=== PATIENT | female | born 1970 | race Caucasian/White ===

== ENCOUNTER 2018-12-09 16:21 | Inpatient (IN) | payer OTHER ==
[2018-12-09] MEDS ORDERED: Sodium Chloride 0.9% 1000 ML 1,000 ML IV STA (16:50)
[2018-12-09] MEDS ORDERED: TYLENOL 325 MG PO PRN (16:52)
[2018-12-09] MEDS ORDERED: Phenergan 25 MG INJ IV PRN (16:56)
[2018-12-09] MEDS: Levofloxacin 500MG/100ML D5W 500 MG/100 ML BAG IV SCH (17:08)
[2018-12-09 17:09] LABS: BASOPHIL % 0.2 % (0.0-0.4); Basophil (Absolute #) 0.02 (0-0.4); Eosinophil % 1.5 % (0.00-5.0); Eosinophil (Absolute #) 0.15 (0-0.5); Granulocyte Absolute (ANC) 5.11 (1.4-6.9); Granulocytes % 51.1 % (36.0-66.0); Hematocrit 45.1 % (35-47); Hemoglobin 14.7 gm/dl (12.0-16.0); Lymphocyte (Absolute #) 3.83 (1.0-4.6); Lymphocytes % 38.3 % (24.0-44.0); Mean Cell Volume 100.2 fl (78-100); Mean Corpuscular Hemoglobin 32.7 pg (26-32); Mean Corpuscular Hgb Concent. 32.6 g/dl (32-36); Mean Platelet Volume 10.4 fl (6-9.5); Monocyte (Absolute #) 0.89 (0.0-1.3); Monocytes % 8.9 % (0.0-12.0); Platelet Count 292 K/mm3 (150-450); Red Cell Distribution Width 14.1 % (11.5-14.0)
[2018-12-09 17:10] LABS: ANION GAP 13.5 MEQ/L (5-15); BLOOD UREA NITROGEN 8 mg/dL (7-17); CHLORIDE 107 mmol/L (98-107); Calcium 9.1 mg/dL (8.4-10.2); Carbon Dioxide 24 mmol/L (22-30); Creatinine 1 0.71 mg/dL (0.52-1.04); Glucose 94 mg/dL (74-106); Potassium 3.4 mmol/L (3.5-5.1); SODIUM 141 mmol/L (137-145)
[2018-12-09] MEDS: Lactated Ringers 1,000 ML IV SCH (17:14)
[2018-12-09] MEDS ORDERED: Robitussin AC Syrup Unit Dose Cup ONE (17:24)
[2018-12-09] MEDS: Robitussin AC Syrup Unit Dose Cup PO PRN ×2 (17:26→21:19)
[2018-12-09] MEDS: DUONEB 0.5-3 MG/3 ml Neb IH SCH (17:29)
[2018-12-09] MEDS ORDERED: PROVENTIL 2.5 MG/3 ML NEB IH PRN (17:30)
[2018-12-09] MEDS ORDERED: solu-MEDROL 125 MG IV SCH (18:00)
[2018-12-09] MEDS ORDERED: Mucinex 600MG ER Tabs PO ONE (20:06)
[2018-12-09] MEDS: Inderal 20 MG PO SCH (21:17)
[2018-12-09] MEDS: Mucinex 600MG ER Tabs PO SCH (21:17)
[2018-12-09] MEDS: Cymbalta 30 MG Capsule PO SCH (21:17)
[2018-12-09] MEDS: Klor Con 10 MEQ PO SCH (21:18)
[2018-12-09] MEDS: Nicoderm CQ 21 MG TOP SCH (21:18)
--- NOTE | 2018-12-09 21:53 | XRAY ---
Indication: Pneumonia. Comparison: One day earlier. PA/lateral chest demonstrates stable right middle lobe infiltrate/atelectasis. Remaining heart and lungs unremarkable. No new cardiopulmonary abnormalities. Comment: Preliminary interpretation was made by [facility] who does not report right lung finding.
[2018-12-10] MEDS: DUONEB 0.5-3 MG/3 ml Neb IH SCH ×4 (00:01→19:31)
[2018-12-10] MEDS: solu-MEDROL 125 MG IV SCH ×5 (00:56→23:33)
[2018-12-10] MEDS: Lactated Ringers 1,000 ML IV SCH ×3 (01:22→19:18)
[2018-12-10] MEDS: Robitussin AC Syrup Unit Dose Cup PO PRN ×2 (05:46→21:07)
[2018-12-10 05:48] LABS: Hematocrit 43.1 % (35-47); Mean Cell Volume 100.9 fl (78-100); Mean Corpuscular Hemoglobin 32.8 pg (26-32); Mean Corpuscular Hgb Concent. 32.5 g/dl (32-36); Mean Platelet Volume 10.3 fl (6-9.5); Platelet Count 255 K/mm3 (150-450); Red Blood Count 4.27 M/mm3 (4.1-5.4); Red Cell Distribution Width 13.9 % (11.5-14.0); White Blood Count 8.9 K/mm3 (4.0-10.5)
[2018-12-10 06:13] LABS: ANION GAP 10.7 MEQ/L (5-15); BLOOD UREA NITROGEN 9 mg/dL (7-17); CHLORIDE 110 mmol/L (98-107); Carbon Dioxide 23 mmol/L (22-30); Creatinine 1 0.51 mg/dL (0.52-1.04); Glucose 171 mg/dL (74-106); Potassium 4.3 mmol/L (3.5-5.1); SODIUM 139 mmol/L (137-145)
[2018-12-10 06:30] LABS: Appearance CLEAR (CLEAR); Bilirubin NEGATIVE (NEGATIVE); Blood NEGATIVE Ery/ul (0-5); Glucose 150 mg/dL (NEGATIVE); Ketones TRACE (NEGATIVE); Leukocyte Esterase NEGATIVE (NEGATIVE); Mucus SLIGHT /HPF (NEGATIVE); Nitrite NEGATIVE (NEGATIVE); Protein,Urine Dip NEGATIVE (Negative); RBC 0-2 /HPF (0-2); Specific Gravity 1.026 (1.005-1.025); Urobilinogen NEGATIVE mg/dL (0-1)
[2018-12-10] MEDS: Klor Con 10 MEQ PO SCH (10:16)
[2018-12-10] MEDS: Mucinex 600MG ER Tabs PO SCH ×2 (10:16→21:07)
[2018-12-10] MEDS: Inderal 20 MG PO SCH ×2 (10:16→21:06)
[2018-12-10] MEDS: Depakote EXTENDED RELEASE 250 MG PO SCH ×2 (10:16→20:58)
[2018-12-10] MEDS: Cymbalta 30 MG Capsule PO SCH ×2 (10:16→20:55)
--- NOTE | 2018-12-10 10:26 | PCM.HP ---
History of Present Illness - Chief Complaint Chief Complaint: pneumonia Date: 12/09/18 (Late entry for 12/09/18 1700) History of Present Illness: is a 48 year old female pt of mine from [facility] with PMHx migraine, lupus, insulin resistance, and depression who has had cough for almost a week. She started taking zithromax and had a kenalog 40mg IM injection 5d ago when she presented with cough and wheezing. She did not improve; had to start staying home from work 3d ago due to increased cough and fever; CXR showed RML infiltrate. She was given 1 dose IM rocephin and po cefdinir to start the next day. She again had fever and worsening cough and SOB so is being admitted directly. - Review of Systems Constitutional: Fever, Fatigue Respiratory: Cough, Short Of Breath Cardiac: Chest Pain (burning, with coughing) Genitourinary Symptoms: Incontinence (with coughing) All Other Systems: Reviewed and Negative Medications & Allergies Home Medications: Home Medication List Albuterol 2.5 mg/3 ml Neb [Proventil 2.5 mg/3 ml Neb] 2.5 mg IH Q4H [History Confirmed 12/09/18] Azithromycin 250 mg [Zithromax 250 MG TABLET] 250 mg PO DAILY 12/09/18 [ History Confirmed 12/09/18] Cefdinir 300 mg PO BID 12/09/18 [History Confirmed 12/09/18] Divalproex Sodium [Divalproex Sodium ER] 500 mg PO BID 12/09/18 [History Confirmed 12/09/18] Duloxetine HCl 60 mg PO BID 12/09/18 [History Confirmed 12/09/18] Hydrocodone/Chlorphen Polis [Hydrocodone-Chlorpheniram Susp] 473 ml PO Q12H 10/25 [History Confirmed 12/09/18] Metformin HCl Xr 500 mg [Glucophage XR 500 MG] 500 mg PO BID 12/09/18 [ History Confirmed 12/09/18] Propranolol HCl 40 mg PO BID 12/09/18 [History Confirmed 12/09/18] Allergies/Adverse Reactions: Allergies Allergy/AdvReac Type Severity Reaction Status Date / Time No Known Drug Allergies Allergy Unverified 12/09/18 17:19 - Past Medical History Neurological History: No Pertinent History ENT History: No Pertinent History Respiratory History: Pneumonia Endocrine Medical History: No Pertinent History, Other Musculoskelatal History: No Pertinent History GI Medical History: No Pertinent History History: No Pertinent History Pyscho-Social History: No Pertinent History Reproductive Disorders: No Pertinent History Comment: Lupus, - Female History Are you now?: No - Past Surgical History Past Surgical History: Yes (ablasion, c section, gall blad) Neuro Surgical History: No Pertinent History Cardiac History: No Pertinent History Respiratory Surgery: No Pertinent History Genitourinary Surgical Hx: No Pertinent History Musculskeletal Surgical Hx: No Pertinent History Female Surgical History: Other Other Surgical History: ablasion, c section, cholecystectomy, - Social History Smoking Status: Current every day smoker How long have you smoked: 30 yrs Exposure to second hand smoke: Yes Alcohol: Occasionally Drug Use: none - Physical Exam Vital Signs: Vital Signs - 24 hr Temp Pulse Resp BP Pulse Ox 12/10/18 08:00 98.3 F 89 18 125/69 93 L 12/10/18 06:06 72 18 96 12/10/18 04:00 97.7 F 72 18 118/65 93 L 12/10/18 03:18 20 12/10/18 00:02 67 18 93 L 12/10/18 00:00 18 12/09/18 23:44 97.7 F 83 18 115/68 94 L 12/09/18 20:31 98.5 F 88 19 125/68 92 L 12/09/18 20:00 20 12/09/18 17:31 89 20 93 L 12/09/18 17:03 98.3 F 100 H 18 134/76 96 12/09/18 16:53 98.3 F 100 H 20 134/76 96 General Appearance: mild distress (paroxysmal coughing throughout the interview) , alert Neurologic Exam: oriented x 3, cooperative Eye Exam: eyes nml inspection Ears, Nose, Throat Exam: moist mucous membranes Neck Exam: normal inspection Respiratory Exam: normal breath sounds, rhonchi (bilat lower lobes, L>R), wheezing (scattered throughout), No crackles/rales Cardiovascular Exam: regular rate/rhythm, normal heart sounds, No murmur Back Exam: normal inspection, No rash Extremity Exam: normal inspection, No pedal edema, No swelling Skin Exam: normal color, warm, dry, No rash Results - Labs Lab/Micro Results: Lab Results-Last 24 Hours 12/09/18 12/09/18 12/10/18 Range/Units 16:55 16:55 05:43 WBC 10.0 8.9 (4.0-10.5) K/mm3 RBC 4.50 4.27 (4.1-5.4) M/mm3 Hgb 14.7 14.0 (12.0-16.0) gm/dl Hct 45.1 43.1 (35-47) % MCV 100.2 H 100.9 H (78-100) fl MCH 32.7 H 32.8 H (26-32) pg MCHC 32.6 32.5 (32-36) g/dl RDW 14.1 H 13.9 (11.5-14.0) % Plt Count 292 255 (150-450) K/mm3 MPV 10.4 H 10.3 H (6-9.5) fl Gran % 51.1 (36.0-66.0) % Eos # (Auto) 0.15 (0-0.5) Absolute Lymphs (auto) 3.83 (1.0-4.6) Absolute Monos (auto) 0.89 (0.0-1.3) Lymphocytes % 38.3 (24.0-44.0) % Monocytes % 8.9 (0.0-12.0) % Eosinophils % 1.5 (0.00-5.0) % Basophils % 0.2 (0.0-0.4) % Absolute Granulocytes 5.11 (1.4-6.9) Basophils # 0.02 (0-0.4) Sodium 141 (137-145) mmol/L Potassium 3.4 L (3.5-5.1) mmol/L Chloride 107 (98-107) mmol/L Carbon Dioxide 24 (22-30) mmol/L Anion Gap 13.5 (5-15) MEQ/L BUN 8 (7-17) mg/dL Creatinine 0.71 (0.52-1.04) mg/dL Estimated GFR > 60.0 ML/MIN Glucose 94 (74-106) mg/dL Calcium 9.1 (8.4-10.2) mg/dL Urine Color (YELLOW) Urine Appearance (CLEAR) Urine pH (5-6) Ur Specific [place] (1.005-1.025) Urine Protein (Negative) Urine Ketones (NEGATIVE) Urine Blood (0-5) Luis Alber[place]/ul Urine Nitrite (NEGATIVE) Urine Bilirubin (NEGATIVE) Urine Urobilinogen (0-1) mg/dL Ur Leukocyte Esterase (NEGATIVE) Urine WBC (Auto) (0-5) /HPF Urine RBC (Auto) (0-2) /HPF U Epithel Cells (Auto) (FEW) /HPF Urine Bacteria (Auto) (NEGATIVE) /HPF Urine Mucus (Auto) (NEGATIVE) /HPF Urine Culture Reflexed (NO) Urine Glucose (NEGATIVE) mg/dL 12/10/18 12/10/18 Range/Units 05:43 05:55 WBC (4.0-10.5) K/mm3 RBC (4.1-5.4) M/mm3 Hgb (12.0-16.0) gm/dl Hct (35-47) % MCV (78-100) fl MCH (26-32) pg MCHC (32-36) g/dl RDW (11.5-14.0) % Plt Count (150-450) K/mm3 MPV (6-9.5) fl Gran % (36.0-66.0) % Eos # (Auto) (0-0.5) Absolute Lymphs (auto) (1.0-4.6) Absolute Monos (auto) (0.0-1.3) Lymphocytes % (24.0-44.0) % Monocytes % (0.0-12.0) % Eosinophils % (0.00-5.0) % Basophils % (0.0-0.4) % Absolute Granulocytes (1.4-6.9) Basophils # (0-0.4) Sodium 139 (137-145) mmol/L Potassium 4.3 D (3.5-5.1) mmol/L Chloride 110 H (98-107) mmol/L Carbon Dioxide 23 (22-30) mmol/L Anion Gap 10.7 (5-15) MEQ/L BUN 9 (7-17) mg/dL Creatinine 0.51 L (0.52-1.04) mg/dL Estimated GFR > 60.0 ML/MIN Glucose 171 H (74-106) mg/dL Calcium 9.0 (8.4-10.2) mg/dL Urine Color YELLOW (YELLOW) Urine Appearance CLEAR (CLEAR) Urine pH 5.0 (5-6) Ur Specific [place] 1.026 (1.005-1.025) Urine Protein NEGATIVE (Negative) Urine Ketones TRACE (NEGATIVE) Urine Blood NEGATIVE (0-5) Luis Alberto/ul Urine Nitrite NEGATIVE (NEGATIVE) Urine Bilirubin NEGATIVE (NEGATIVE) Urine Urobilinogen NEGATIVE (0-1) mg/dL Ur Leukocyte Esterase NEGATIVE (NEGATIVE) Urine WBC (Auto) NONE (0-5) /HPF Urine RBC (Auto) 0-2 (0-2) /HPF U Epithel Cells (Auto) NONE (FEW) /HPF Urine Bacteria (Auto) NONE (NEGATIVE) /HPF Urine Mucus (Auto) SLIGHT (NEGATIVE) /HPF Urine Culture Reflexed NO (NO) Urine Glucose 150 (NEGATIVE) mg/dL - Radiology Impressions Radiology Exams & Impressions: Radiology Procedures Category Date Time Status CHEST 2 VIEWS (PA AND LAT) Routine Exams 12/09/18 17:00 Completed - Other Procedures and Tests Respiratory Therapy 12/09/18 17:22 Peak Expiratory Flow Rate ONCE Respiratory Therapy Assessment DAILY Assessment/Plan (1) Pneumonia Current Visit: Yes Status: Acute Qualifiers: Pneumonia type: due to unspecified organism Laterality: bilateral Lung location: unspecified part of lung Qualified Code(s): J18.9 - Pneumonia, unspecified organism Assessment & Plan: WIll admit on IV levaquin. One dose 125mg solumedrol to start, then 40mg IV q6h. Duonebs q6h. CXR and labs. Code(s): J18.9 - PNEUMONIA, UNSPECIFIED ORGANISM (2) Migraine Current Visit: Yes Status: Chronic Qualifiers: Migraine type: with aura Status migrainosus presence: without status migrainosus Intractability: not intractable Qualified Code(s): G43.109 - Migraine with aura, not intractable, without status migrainosus Assessment & Plan: stable on current meds. continue depakote and propranolol. Code(s): G43.909 - MIGRAINE, UNSP, NOT INTRACTABLE, WITHOUT STATUS MIGRAINOSUS (3) Insulin resistance Current Visit: Yes Status: Chronic Assessment & Plan: on metformin. Code(s): E88.81 - METABOLIC SYNDROME
--- NOTE | 2018-12-10 10:31 | PCM.NOTE ---
Date and Time: 12/10/18 1029 Subjective Assessment: Pt is feeling much better this morning! Cough is much improved. [place] po. Urinating fine - no incontinence with coughing over night. - Review of Systems Constitutional: No Fever Respiratory: Cough (decreased) Objective Exam General Appearance: no apparent distress, alert Neurologic Exam: oriented x 3, cooperative Skin Exam: normal color, warm, dry, No rash Respiratory Exam: normal breath sounds, rhonchi (faint in R base), No crackles/ rales, No wheezing Cardiovascular Exam: regular rate/rhythm, normal heart sounds, No murmur Extremity Exam: normal inspection, No pedal edema, No swelling Back Exam: normal inspection, No rash OBJECTIVE DATA Vital Signs: Vital Signs - 24 hr Temp Pulse Resp BP Pulse Ox 12/10/18 08:00 98.3 F 89 18 125/69 93 L 12/10/18 06:06 72 18 96 12/10/18 04:00 97.7 F 72 18 118/65 93 L 12/10/18 03:18 20 12/10/18 00:02 67 18 93 L 12/10/18 00:00 18 12/09/18 23:44 97.7 F 83 18 115/68 94 L 12/09/18 20:31 98.5 F 88 19 125/68 92 L 12/09/18 20:00 20 12/09/18 17:31 89 20 93 L 12/09/18 17:03 98.3 F 100 H 18 134/76 96 12/09/18 16:53 98.3 F 100 H 20 134/76 96 Pain Assessment - Last Documented Pain Intensity 2 Pain Scale Used 0-10 Pain Scale Intake and Output: Intake & Output 12/07/18 12/08/18 12/09/18 12/10/18 11:59 11:59 11:59 11:59 Intake Total 4978 Output Total 550 Balance 4428 Weight 88.7 kg Lab Results: Lab Results-Last 24 Hours 12/09/18 12/09/18 12/10/18 Range/Units 16:55 16:55 05:43 WBC 10.0 8.9 (4.0-10.5) K/mm3 RBC 4.50 4.27 (4.1-5.4) M/mm3 Hgb 14.7 14.0 (12.0-16.0) gm/dl Hct 45.1 43.1 (35-47) % MCV 100.2 H 100.9 H (78-100) fl MCH 32.7 H 32.8 H (26-32) pg MCHC 32.6 32.5 (32-36) g/dl RDW 14.1 H 13.9 (11.5-14.0) % Plt Count 292 255 (150-450) K/mm3 MPV 10.4 H 10.3 H (6-9.5) fl Gran % 51.1 (36.0-66.0) % Eos # (Auto) 0.15 (0-0.5) Absolute Lymphs (auto) 3.83 (1.0-4.6) Absolute Monos (auto) 0.89 (0.0-1.3) Lymphocytes % 38.3 (24.0-44.0) % Monocytes % 8.9 (0.0-12.0) % Eosinophils % 1.5 (0.00-5.0) % Basophils % 0.2 (0.0-0.4) % Absolute Granulocytes 5.11 (1.4-6.9) Basophils # 0.02 (0-0.4) Sodium 141 (137-145) mmol/L Potassium 3.4 L (3.5-5.1) mmol/L Chloride 107 (98-107) mmol/L Carbon Dioxide 24 (22-30) mmol/L Anion Gap 13.5 (5-15) MEQ/L BUN 8 (7-17) mg/dL Creatinine 0.71 (0.52-1.04) mg/dL Estimated GFR > 60.0 ML/MIN Glucose 94 (74-106) mg/dL Calcium 9.1 (8.4-10.2) mg/dL Urine Color (YELLOW) Urine Appearance (CLEAR) Urine pH (5-6) Ur Specific [place] (1.005-1.025) Urine Protein (Negative) Urine Ketones (NEGATIVE) Urine Blood (0-5) Luis Alberto/ul Urine Nitrite (NEGATIVE) Urine Bilirubin (NEGATIVE) Urine Urobilinogen (0-1) mg/dL Ur Leukocyte Esterase (NEGATIVE) Urine WBC (Auto) (0-5) /HPF Urine RBC (Auto) (0-2) /HPF U Epithel Cells (Auto) (FEW) /HPF Urine Bacteria (Auto) (NEGATIVE) /HPF Urine Mucus (Auto) (NEGATIVE) /HPF Urine Culture Reflexed (NO) Urine Glucose (NEGATIVE) mg/dL 12/10/18 12/10/18 Range/Units 05:43 05:55 WBC (4.0-10.5) K/mm3 RBC (4.1-5.4) M/mm3 Hgb (12.0-16.0) gm/dl Hct (35-47) % MCV (78-100) fl MCH (26-32) pg MCHC (32-36) g/dl RDW (11.5-14.0) % Plt Count (150-450) K/mm3 MPV (6-9.5) fl Gran % (36.0-66.0) % Eos # (Auto) (0-0.5) Absolute Lymphs (auto) (1.0-4.6) Absolute Monos (auto) (0.0-1.3) Lymphocytes % (24.0-44.0) % Monocytes % (0.0-12.0) % Eosinophils % (0.00-5.0) % Basophils % (0.0-0.4) % Absolute Granulocytes (1.4-6.9) Basophils # (0-0.4) Sodium 139 (137-145) mmol/L Potassium 4.3 D (3.5-5.1) mmol/L Chloride 110 H (98-107) mmol/L Carbon Dioxide 23 (22-30) mmol/L Anion Gap 10.7 (5-15) MEQ/L BUN 9 (7-17) mg/dL Creatinine 0.51 L (0.52-1.04) mg/dL Estimated GFR > 60.0 ML/MIN Glucose 171 H (74-106) mg/dL Calcium 9.0 (8.4-10.2) mg/dL Urine Color YELLOW (YELLOW) Urine Appearance CLEAR (CLEAR) Urine pH 5.0 (5-6) Ur Specific [place] 1.026 (1.005-1.025) Urine Protein NEGATIVE (Negative) Urine Ketones TRACE (NEGATIVE) Urine Blood NEGATIVE (0-5) Luis Alberto/ul Urine Nitrite NEGATIVE (NEGATIVE) Urine Bilirubin NEGATIVE (NEGATIVE) Urine Urobilinogen NEGATIVE (0-1) mg/dL Ur Leukocyte Esterase NEGATIVE (NEGATIVE) Urine WBC (Auto) NONE (0-5) /HPF Urine RBC (Auto) 0-2 (0-2) /HPF U Epithel Cells (Auto) NONE (FEW) /HPF Urine Bacteria (Auto) NONE (NEGATIVE) /HPF Urine Mucus (Auto) SLIGHT (NEGATIVE) /HPF Urine Culture Reflexed NO (NO) Urine Glucose 150 (NEGATIVE) mg/dL Radiology Exams: Radiology Procedures Category Date Time Status CHEST 2 VIEWS (PA AND LAT) Routine Exams 12/09/18 17:00 Completed Assessment/Plan (1) Pneumonia Current Visit: Yes Status: Acute Qualifiers: Pneumonia type: due to unspecified organism Laterality: bilateral Lung location: unspecified part of lung Qualified Code(s): J18.9 - Pneumonia, unspecified organism Assessment & Plan: Much improved on IV levaquin and solumedrol. Advised she should stay and get her steroids today, duonebs, and IV fluids. Get another dose of levaquin tomorrow then discharge to home. Code(s): J18.9 - PNEUMONIA, UNSPECIFIED ORGANISM (2) Migraine Current Visit: Yes Status: Chronic Qualifiers: Migraine type: with aura Status migrainosus presence: without status migrainosus Intractability: not intractable Qualified Code(s): G43.109 - Migraine with aura, not intractable, without status migrainosus Code(s): G43.909 - MIGRAINE, UNSP, NOT INTRACTABLE, WITHOUT STATUS MIGRAINOSUS (3) Insulin resistance Current Visit: Yes Status: Chronic Assessment & Plan: restart metformin Code(s): E88.81 - METABOLIC SYNDROME
[2018-12-10] MEDS: Glucophage XR 500 MG PO SCH ×2 (10:54→21:07)
[2018-12-10] MEDS: Levofloxacin 500MG/100ML D5W 500 MG/100 ML BAG IV SCH (14:44)
[2018-12-10] MEDS: Nicoderm CQ 21 MG TOP SCH (20:54)
[2018-12-11] MEDS: DUONEB 0.5-3 MG/3 ml Neb IH SCH ×2 (00:55→07:29)
[2018-12-11] MEDS: Lactated Ringers 1,000 ML IV SCH (04:02)
[2018-12-11 06:19] LABS: BLOOD UREA NITROGEN 7 mg/dL (7-17); CHLORIDE 106 mmol/L (98-107); Calcium 9.3 mg/dL (8.4-10.2); Carbon Dioxide 24 mmol/L (22-30); Creatinine 1 0.44 mg/dL (0.52-1.04); Glucose 138 mg/dL (74-106); SODIUM 140 mmol/L (137-145)
[2018-12-11 06:21] LABS: Potassium 3.9 mmol/L (3.5-5.1)
[2018-12-11 06:25] LABS: ANION GAP 13.9 MEQ/L (5-15)
[2018-12-11] MEDS: solu-MEDROL 125 MG IV SCH (06:49)
--- NOTE | 2018-12-11 10:19 | PCM.DS ---
Discharge Summary Date of Admission: 12/09/18 16:25 Admitting Physician: BRUCE BONILLA Primary Care Provider: BRUCE BONILLA Allergies Allergies No Known Drug Allergies Allergy (Unverified 12/09/18 17:19) Hospital Summary - Vitals & Intake/Output Vital Signs: Vital Signs Temperature 98.0 F 12/11/18 08:00 Pulse Rate 79 12/11/18 08:00 Respiratory Rate 18 12/11/18 08:00 Blood Pressure 143/67 12/11/18 08:00 O2 Sat by Pulse Oximetry 96 12/11/18 08:00 Intake & Output: Intake & Output 12/08/18 12/09/18 12/10/18 12/11/18 11:59 11:59 11:59 11:59 Intake Total 5228 6708 Output Total 550 Balance 4678 6708 Weight 88.7 kg - Lab Result Diagrams: 12/10/18 05:43 12/11/18 05:45 Lab Results-Last 24 Hrs: Lab Results-Last 24 Hours 12/11/18 Range/Units 05:45 Sodium 140 (137-145) mmol/L Potassium 3.9 (3.5-5.1) mmol/L Chloride 106 (98-107) mmol/L Carbon Dioxide 24 (22-30) mmol/L Anion Gap 13.9 (5-15) MEQ/L BUN 7 (7-17) mg/dL Creatinine 0.44 L (0.52-1.04) mg/dL Estimated GFR > 60.0 ML/MIN Glucose 138 H (74-106) mg/dL Calcium 9.3 (8.4-10.2) mg/dL - Radiology Exams Ordered Rad Exams-Entire Visit: Radiology Procedures Category Date Time Status CHEST 2 VIEWS (PA AND LAT) Routine Exams 12/09/18 17:00 Completed - Procedures and Test Procedures and Tests throughout Hospitalization: Therapy Orders & Screens 12/09/18 16:43 Respiratory Nebulizer Q6H Comment: DUONEB Q6H 12/09/18 17:22 Peak Expiratory Flow Rate ONCE Comment: Reason For Exam: Respiratory Therapy Assessment DAILY Comment: 12/09/18 17:34 Smoking Cessation Education ONCE Comment: Diagnosis: pneumonia Smoking Status: Current every day smoker How long have you smoked: 30 yrs Have you smoked in the past 12 months: Yes Discharge Exam General Appearance: no apparent distress, alert Neurologic Exam: oriented x 3, cooperative Skin Exam: normal color, warm, dry, No rash Respiratory Exam: normal breath sounds (good air exchange), rhonchi (scattered) , wheezing (scattered), No crackles/rales Cardiovascular Exam: regular rate/rhythm, normal heart sounds, No murmur Extremity Exam: normal inspection, No pedal edema, No swelling Back Exam: normal inspection, No rash Final Diagnosis/Problem List - Final Discharge Diagnosis/Problem (1) Pneumonia Current Visit: Yes Status: Acute Assessment & Plan: Much improved clinically. RML still present on over read of CXR at admission. On IV levaquin. After today's dose, OK to discharge to home on po prednisone, mucinex, levaquin , duonebs. Code(s): J18.9 - PNEUMONIA, UNSPECIFIED ORGANISM (2) Migraine Current Visit: Yes Status: Chronic Code(s): G43.909 - MIGRAINE, UNSP, NOT INTRACTABLE, WITHOUT STATUS MIGRAINOSUS (3) Insulin resistance Current Visit: Yes Status: Chronic Code(s): E88.81 - METABOLIC SYNDROME - Discharge Disposition: Home, Self-Care Condition: Good Prescriptions: New Prednisone 20 mg [Deltasone 20 mg] 20 mg PO DAILY #10 tablet Albuterol/Ipratropium 3ml Neb* [DUONEB 0.5-3 MG/3 ml Neb] 3 ml IH Q6H #20 ampul.neb Levofloxacin [Levaquin] 500 mg PO DAILY 7 Days #7 tablet Guaifenesin 600 mg ER [Mucinex 600MG ER Tabs] 600 mg PO BID PRN #30 tablet PRN Reason: Cough Continue Duloxetine HCl 60 mg PO BID Divalproex Sodium [Divalproex Sodium ER] 500 mg PO BID Metformin HCl Xr 500 mg [Glucophage XR 500 MG] 500 mg PO BID Propranolol HCl 40 mg PO BID Discontinued Azithromycin 250 mg [Zithromax 250 MG TABLET] 250 mg PO DAILY Albuterol 2.5 mg/3 ml Neb [Proventil 2.5 mg/3 ml Neb] 2.5 mg IH Q4H Cefdinir 300 mg PO BID Hydrocodone/Chlorphen Polis [Hydrocodone-Chlorpheniram Susp] 473 ml PO Q12H Follow up with: BRUCE BONILLA [Primary Care Provider] - 1 Week
[2018-12-11] MEDS: Levofloxacin 500MG/100ML D5W 500 MG/100 ML BAG IV SCH (10:26)
[2018-12-11] MEDS: Klor Con 10 MEQ PO SCH (10:28)
[2018-12-11] MEDS: Mucinex 600MG ER Tabs PO SCH (10:28)
[2018-12-11] MEDS: Cymbalta 30 MG Capsule PO SCH (10:28)
[2018-12-11] MEDS: Depakote EXTENDED RELEASE 250 MG PO SCH (10:28)
[2018-12-11] MEDS: Glucophage XR 500 MG PO SCH (10:28)
[2018-12-11] MEDS: Inderal 20 MG PO SCH (10:28)
[2018-12-11 12:02] VITALS: BP 137/78; PULSE 80; O2SAT 93
== END 2018-12-11 11:55 | disposition home or self-care (01) | DRG 195 ==
LOC: MED SURG 16:25
PROVIDERS: ADMIT Family Medicine; ATTEND Family Medicine
DX: J18.9 Pneumonia, unspecified organism (principal); G43.909 Migraine, unspecified, not intractable, without status migrainosus; E88.81 Metabolic syndrome and other insulin resistance; Z79.899 Other long term (current) drug therapy
CPT/HCPCS: 36415; 71046; 80048; 81001; 85025; 85027; 94150; 94640; 94760; J1956; J2930; A9270-GY

== ENCOUNTER 2020-06-02 14:18 | Emergency (ER) | payer OTHER ==
[2020-06-02] MEDS ORDERED: Zofran 4 MG/2 ML VIAL IV ONE (14:21)
[2020-06-02] MEDS ORDERED: Sodium Chloride 0.9% 1000 ML 1,000 ML IV STA (14:21)
[2020-06-02 14:36] VITALS: BP 128/96; PULSE 91; O2SAT 96
[2020-06-02] MEDS ORDERED: Zofran 4 MG/2 ML VIAL ONE (14:37)
[2020-06-02] MEDS ORDERED: Sodium Chloride 0.9% 1000 ML 1,000 ML ONE (14:37)
[2020-06-02 14:53] LABS: Absolute Neutrophil Ct (ANC) 6.13 (1.4-6.9); BASOPHIL % 0.2 % (0.0-0.4); Basophil (Absolute #) 0.02 (0-0.4); Hematocrit 47.9 % (35-47); Hemoglobin 16.3 gm/dl (12.0-16.0); Lymphocyte (Absolute #) 3.12 (1.0-4.6); Lymphocytes % 30.7 % (24.0-44.0); Mean Cell Volume 94.1 fl (78-100); Mean Platelet Volume 10.9 fl (7.5-11.0); Monocyte (Absolute #) 0.79 (0.0-1.3); Monocytes % 7.8 % (0.0-12.0); Neutrophil % 60.3 % (36.0-66.0); Platelet Count 263 K/mm3 (150-450); Red Blood Count 5.09 M/mm3 (4.1-5.4); Red Cell Distribution Width 14.5 % (11.5-14.0); White Blood Count 10.2 K/mm3 (4.0-10.5)
[2020-06-02 14:58] LABS: ALBUMIN 4.1 g/dL (3.5-5.0); ALKALINE PHOSPHATASE 80 U/L (38-126); AMYLASE 57 U/L (30-110); ANION GAP 12.2 MEQ/L (5-15); BLOOD UREA NITROGEN 11 mg/dL (7-17); CHLORIDE 107 mmol/L (98-107); Calcium 9.7 mg/dL (8.4-10.2); Carbon Dioxide 20 mmol/L (22-30); Creatinine 1 0.72 mg/dL (0.52-1.04); EST GLOMERULAR FILTRATION RATE > 60.0 ML/MIN; Glucose 108 mg/dL (74-106); LIPASE 174 U/L (23-300); Potassium 3.3 mmol/L (3.5-5.1); SGOT/AST 30 U/L (14-36); SGPT/ALT 38 U/L (0-35); SODIUM 136 mmol/L (137-145); Total Protein 8.1 g/dL (6.3-8.2)
--- NOTE | 2020-06-02 15:12 | ERPHSYRPT ---
- History of Present Illness Time Seen by Provider: 06/02/20 15:09 Historian: patient Exam Limitations: no limitations Patient Subjective Stated Complaint: Abdominal pain for 3-4 days Triage Nursing Assessment: Patient ambulated back to ED and transferred self to bed. Patient A+O X3. Patient's skin pink, warm and dry. Patient complains of lower abdominal pain constant dull pain 4/10 for 4 days. Abdomen soft and round with BS X 4. Patient reports last BM 7 days ago. Patient denies vomiting or diarrhea but complains of nausea. Physician History: This 49-year-old female without any significant past medical history started having lower quadrant abdominal pain 3 to 4 days ago. 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 She continues to have the lower abdominal pain associated with severe nausea feeling. Pain got so worse today that it almost bent her over. She denies any fevers chills headache back pain or abnormal bleeding through vagina. Patient does not have any previous history of same type of abdominal pain. Timing/Duration: day(s) (3-4 days) Quality: cramping Abdominal Pain Onset Location: RLQ, LLQ, suprapubic Pain Radiation: no radiation Severity of Pain-Max: moderate Severity of Pain-Current: moderate Modifying Factors: Improves With: nothing Associated Symptoms: nausea Previous symptoms: no prior history Allergies/Adverse Reactions: No Known Drug Allergies Allergy (Verified 06/02/20 14:26) Home Medications: Docusate Sodium 100 mg [Colace 100 MG] 1 tab PO BID 06/02/20 [History] Topiramate [Topamax] 75 mg PO BID 06/02/20 [History] Hx Influenza Vaccination/Date Given: No Hx Pneumococcal Vaccination/Date Given: No Immunizations Up to Date: Yes Travel Risk - International Travel Have you traveled outside of the country in past 3 weeks: No - Coronavirus Screening Are you exhibiting any of the following symptoms?: No Close contact with a COVID-19 positive Pt in past 14-21 Days: No - Review of Systems Constitutional: No Fever, No Chills Eyes: No Symptoms Ears, Nose, & Throat: No Symptoms Respiratory: No Cough, No Dyspnea Cardiac: No Chest Pain, No Edema, No Syncope Abdominal/Gastrointestinal: Abdominal Pain, Nausea, No Vomiting, No Diarrhea Genitourinary Symptoms: No Dysuria Musculoskeletal: No Back Pain, No Neck Pain Skin: No Rash Neurological: No Dizziness, No Focal Weakness, No Sensory Changes Psychological: No Symptoms Endocrine: No Symptoms All Other Systems: Reviewed and Negative - Past Medical History Neurological History: No Pertinent History ENT History: No Pertinent History Respiratory History: Pneumonia Endocrine Medical History: No Pertinent History, Other Musculoskeletal History: No Pertinent History GI Medical History: No Pertinent History History: No Pertinent History Psycho-Social History: No Pertinent History Female Reproductive Disorders: No Pertinent History Other Medical History: Lupus, - Past Surgical History Past Surgical History: Yes (ablasion, c section, gall blad) Neuro Surgical History: No Pertinent History Cardiac: No Pertinent History Respiratory: No Pertinent History Gastrointestinal: Cholecystectomy Genitourinary: No Pertinent History Musculoskeletal: No Pertinent History Female Surgical History: Other Other Surgical History: ablasion, c section, cholecystectomy, - Social History Smoking Status: Current every day smoker How long have you smoked: 30 yrs Exposure to second hand smoke: Yes Drug Use: none Patient Lives Alone: Yes - Female History Hx Last Menstrual Period: ablation Hx Now: No - Nursing Vital Signs Nursing Vital Signs: Initial Vital Signs Temperature 98.4 F 06/02/20 14:29 Pulse Rate 91 H 06/02/20 14:29 Respiratory Rate 18 06/02/20 14:29 Blood Pressure 128/96 06/02/20 14:29 O2 Sat by Pulse Oximetry 96 06/02/20 14:29 Pain Scale Pain Intensity 4 - Physical Exam General Appearance: no apparent distress, alert Eye Exam: PERRL/EOMI, eyes nml inspection Ears, Nose, Throat Exam: normal ENT inspection, pharynx normal, moist mucous membranes Neck Exam: normal inspection, non-tender, supple, full range of motion Respiratory Exam: normal breath sounds, lungs clear, No respiratory distress Cardiovascular Exam: regular rate/rhythm, normal heart sounds Gastrointestinal/Abdomen Exam: soft, tenderness (lower abdomen ), rebound (LLQ), No mass Back Exam: normal inspection, normal range of motion, No CVA tenderness, No vertebral tenderness Extremity Exam: normal inspection, normal range of motion, pelvis stable Neurologic Exam: alert, oriented x 3, cooperative, normal mood/affect, nml cerebellar function, sensation nml, No motor deficits Skin Exam: normal color, warm, dry SpO2: 96 - Course Nursing assessment & vital signs reviewed: Yes - CT Exams Abdomen/Pelvis CT Interpretation: Tele-radiologist Report (acute sigmoid diverticulitis) Ordered Tests: Active Orders 24 hr Category Date Time Status ABDOMEN AND PELVIS W/0 CONTRAS [CT] Stat Exams 06/02/20 14:22 Taken AMYLASE Stat Lab 06/02/20 14:40 Completed CBC W DIFF Stat Lab 06/02/20 14:40 Completed CMP Stat Lab 06/02/20 14:40 Completed LIPASE Stat Lab 06/02/20 14:40 Completed Lactic Acid Stat Lab 06/02/20 14:21 Completed UA W/RFX UR CULTURE Stat Lab 06/02/20 14:22 Ordered Medication Summary Discontinued Medications Generic Name Dose Route Start Last Admin Trade Name Freq PRN Reason Stop Dose Admin Sodium Chloride 1,000 mls @ 999 mls/hr 06/02/20 14:21 06/02/20 14:38 Sodium Chloride 0.9% 1000 Ml IV 06/02/20 15:21 999 mls/hr .Q1H1M STA Administration Sodium Chloride Confirm 06/02/20 14:37 Sodium Chloride 0.9% 1000 Ml Administered 06/02/20 14:38 Dose 1,000 mls @ ud .ROUTE .STK-MED ONE Ondansetron HCl 4 mg 06/02/20 14:21 06/02/20 14:38 Zofran 4 Mg/2 Ml Vial IV 06/02/20 14:22 4 mg STAT ONE Administration Ondansetron HCl Confirm 06/02/20 14:37 Zofran 4 Mg/2 Ml Vial Administered 06/02/20 14:38 Dose 4 mg .ROUTE .STK-MED ONE Lab/Rad Data: Laboratory Result Diagrams 06/02/20 14:40 06/02/20 14:40 Laboratory Results 06/02/20 06/02/20 06/02/20 Range/Units 14:40 14:40 14:21 WBC 10.2 (4.0-10.5) K/mm3 RBC 5.09 (4.1-5.4) M/mm3 Hgb 16.3 H (12.0-16.0) gm/dl Hct 47.9 H (35-47) % MCV 94.1 (78-100) fl MCH 32.0 (26-32) pg MCHC 34.0 (32-36) g/dl RDW 14.5 H (11.5-14.0) % Plt Count 263 (150-450) K/mm3 MPV 10.9 (7.5-11.0) fl Gran % 60.3 (36.0-66.0) % Eos # (Auto) 0.10 (0-0.5) Absolute Lymphs (auto) 3.12 (1.0-4.6) Absolute Monos (auto) 0.79 (0.0-1.3) Lymphocytes % 30.7 (24.0-44.0) % Monocytes % 7.8 (0.0-12.0) % Eosinophils % 1.0 (0.00-5.0) % Basophils % 0.2 (0.0-0.4) % Absolute Granulocytes 6.13 (1.4-6.9) Basophils # 0.02 (0-0.4) Sodium 136 L (137-145) mmol/L Potassium 3.3 L (3.5-5.1) mmol/L Chloride 107 (98-107) mmol/L Carbon Dioxide 20 L (22-30) mmol/L Anion Gap 12.2 (5-15) MEQ/L BUN 11 (7-17) mg/dL Creatinine 0.72 (0.52-1.04) mg/dL Estimated GFR > 60.0 ML/MIN Glucose 108 H (74-106) mg/dL Lactic Acid 1.3 (0.4-2.0) Calcium 9.7 (8.4-10.2) mg/dL Total Bilirubin 0.50 (0.2-1.3) mg/dL AST 30 (14-36) U/L ALT 38 H (0-35) U/L Alkaline Phosphatase 80 (38-126) U/L Serum Total Protein 8.1 (6.3-8.2) g/dL Albumin 4.1 (3.5-5.0) g/dL Amylase 57 (30-110) U/L Lipase 174 (23-300) U/L - Progress Discussed with : Bella Counseled pt/family regarding: lab results, diagnosis, need for follow-up, rad results - Departure Departure Disposition: Home Clinical Impression: Sigmoid diverticulitis Condition: Stable Critical Care Time: No Referrals: BRUCE HILLIARD [Primary Care Provider] - Instructions: Diverticulitis (DC) Additional Instructions: Discharge/Care Plan LEANDRA ASCENCIO was seen on 06/02/20 in the Emergency Room. The patient was counseled regarding Diagnosis,Lab results, Imaging studies, need for follow up and when to return to the Emergency Room. Prescriptions given: Discharge Note I have spoken with the patient and/or caregivers. I have explained the patient's condition, diagnosis and treatment plan based on the information available to me at this time. I have answered the patient's and/or caregiver's questions and addressed any concerns. The patient and/or caregivers have as good understanding of the patient's diagnosis, condition and treatment plan as can be expected at this point. The vital signs have been stable. The patient's condition is stable and appropriate for discharge from the emergency department. The patient will pursue further outpatient evaluation with the primary care physician or other designated or consulting physician as outlined in the discharge instructions. The patient and/or caregivers are agreeable to this plan of care and follow-up instructions have been explained in detail. The patient and/or caregivers have received these instruction. The patient/and or caregivers are aware that any significant change in condition or worsening of symptoms should prompt an immediate return to this or the closest emergency department or call 911. LEANDRA ASCENCIO was seen on 06/02/20 n the Emergency Room. At that time you we re treated for an emergent condition, during your visit Laboratory, Radiology and/or other procedures may have been ordered. It is very important that you follow-up with your Primary Care Physician BRUCE HILLIARD within the next 24-48 hours to review your Emergency Room visit and the final results of testing that was ordered. Some test results such as Urine Cultures, Blood Cultures, and other cultures if ordered will not be finalized for 24-48 hours. If you do not have a Primary Care Provider please call the medical records department at [phone] ext [phone] to obtain a copy of your results or you may sign into our patient portal to obtain these results by visiting us @ [email or web address] and completing the following steps: 1. Click on the Patient Portal link 2. Click the Patient Self Enrollment Link to complete the enrollment form and entering your 3. Once the enrollment form is completed you will receive an email with a temporary ID and password at the email address you provided. 4. Next choose a user name and password. Your user name must be at least 4 characters long and your password must be at least 4 characters long. 5. Choose a security question from the list and provide your answer to the question. If you already have signed into the Health Portal you may access your Health Care Information 01/03 by the following steps: 1. Login to our website @ [email or web address] 2. Enter your original user name and password. FAQS The [facility] Health Portal is an online tool that contains your Lab Results, Radiology Reports, Visit History, Discharge Instructions and Health Summary Lab and Radiology Results will not be available for 72 hours on the portal. The Portal is a secure site, passwords are encryted and URLs are re-written so they cannot be copied and pasted. You and authorized family members are the only ones who can access your Portal. Also there is a timeout feature that protects your information if you leave the Portal page open. If you have technical difficulty please use the Contact Us link on the page this will allow you to submit any questions you have regarding the Portal or you may contact the Medical Record Department at [phone] ext [phone]. Prescriptions: Ciprofloxacin [Cipro 500 MG] 500 mg PO BIDAC #20 tablet Metronidazole 500 mg [Flagyl 500 MG] 500 mg PO TID #21 tablet
[2020-06-02] MEDS ORDERED: Flagyl 500 MG PO ONE (15:30)
[2020-06-02] MEDS ORDERED: Cipro 500 MG PO STA (15:30)
[2020-06-02] MEDS ORDERED: Cipro 500 MG ONE (15:49)
[2020-06-02] MEDS ORDERED: Flagyl 500 MG ONE (15:49)
--- NOTE | 2020-06-02 19:22 | XRAY ---
Indication: Abdomen/pelvic pain 3 days. Multiple contiguous axial images obtained through the abdomen and pelvis without contrast as ordered. Comparison: April 12, 2014. Lung bases are clear. Heart is not enlarged. Noncontrasted stomach and bowel loops appear nonobstructed. Normal appendix. Mild scattered descending and sigmoid diverticulosis. Sigmoid colon demonstrates mild wall thickening with mild pericolonic stranding favoring diverticulitis. Tiny pelvic free fluid but no walled off fluid collection or free air. Again previous cholecystectomy. Stable tiny posterior right lobe hepatic cyst/hemangioma and 2.4 cm left adrenal adenoma. Remaining liver, pancreas, spleen, right adrenal gland, kidneys, ureters, bladder, and uterus appear unremarkable for noncontrast exam. Again minimal aortoiliac calcifications without AAA. Osseous structures intact. Impression: 1. Descending/sigmoid diverticulosis with new sigmoid diverticulitis and tiny reactive free fluid. 2. Stable tiny hepatic cyst/hemangioma and small left adrenal adenoma. Comment: Preliminary interpretation was made by [facility]. No critical discrepancy.
== END 2020-06-02 16:14 | disposition home or self-care (01) ==
LOC: ED 14:18
DX: K57.32 Diverticulitis of large intestine without perforation or abscess without bleeding (principal); R10.31 Right lower quadrant pain; R10.32 Left lower quadrant pain; R10.9 Unspecified abdominal pain
CPT/HCPCS: 36000; 36415; 74176; 80053; 82150; 83605; 83690; 85025; 96374; 99284; J2405; A9270-GY

== ENCOUNTER 2021-08-23 17:43 | Observation (INO) | payer OTHER ==
[2021-08-23] MEDS ORDERED: BABY ASPIRIN 81 MG CHEW PO ONE (18:13)
[2021-08-23] MEDS ORDERED: Zofran 4 MG/2 ML VIAL IV ONE (18:13)
[2021-08-23] MEDS ORDERED: MORPHINE SULFATE 4 MG INJ IV ONE (18:13)
[2021-08-23 18:23] LABS: Absolute Neutrophil Ct (ANC) 6.21 (1.4-6.9); Basophil (Absolute #) 0.02 (0-0.4); Eosinophil % 0.5 % (0.00-5.0); Eosinophil (Absolute #) 0.05 (0-0.5); Hemoglobin 14.9 gm/dl (12.0-16.0); Lymphocyte (Absolute #) 2.85 (1.0-4.6); Lymphocytes % 28.8 % (24.0-44.0); Mean Cell Volume 95.9 fl (78-100); Mean Corpuscular Hemoglobin 31.8 pg (26-32); Mean Corpuscular Hgb Concent. 33.1 g/dl (32-36); Mean Platelet Volume 9.9 fl (7.5-11.0); Monocyte (Absolute #) 0.77 (0.0-1.3); Monocytes % 7.8 % (0.0-12.0); Neutrophil % 62.7 % (36.0-66.0); Platelet Count 276 K/mm3 (150-450); Red Blood Count 4.69 M/mm3 (4.1-5.4); Red Cell Distribution Width 13.9 % (11.5-14.0); White Blood Count 9.9 K/mm3 (4.0-10.5)
[2021-08-23] MEDS ORDERED: MORPHINE SULFATE 4 MG INJ ONE (18:54)
[2021-08-23] MEDS ORDERED: Zofran 4 MG/2 ML VIAL ONE (18:54)
[2021-08-23] MEDS ORDERED: BABY ASPIRIN 81 MG CHEW ONE (18:54)
--- NOTE | 2021-08-23 19:03 | ERPHSYRPT ---
- History of Present Illness Time Seen by Provider: 08/23/21 17:46 Historian: patient Exam Limitations: no limitations Patient Subjective Stated Complaint: PT states "[facility] due to what I think is pleurasy and when they jeevan my labs, my D Dimer was elevated." Triage Nursing Assessment: Pt presented alert and oriented X 3, skin pwd Pt ambualtes with an upright steady gait, able to speak in clear full sentences. PT in no apaprent respiratory distress. Physician History: 50 years old female with history of hypertension, tobacco abuse presented in the ER with left shoulder blade area pain since yesterday, moderate intensity, dull to sharp nature, aggravated with deep breathing/coughing/position change /palpation and partial relief with being still in a certain position. Denies any anterior chest pain or difficulty breathing otherwise. Patient was seen at urgent care and has positive D-dimer and presented to the ER for further evaluation. Timing/Duration: yesterday, constant, gradual onset, worse Activities at Onset: rest Quality: sharpness Location: back Chest Pain Radiation: no radiation Severity of Pain-Max: moderate Severity of Pain-Current: moderate Modifying Factors: Worsens With: breathing, coughing, movement, palpation, change in position Associated Symptoms: denies symptoms, back pain Prior Chest Pain/Cardiac Workup: no prior chest pain, no prior cardiac workup Nitro Today/Relief: no nitro taken today Aspirin Treatment Today: no aspirin today Allergies/Adverse Reactions: No Known Drug Allergies Allergy (Verified 06/02/20 14:26) Home Medications: Topiramate [Topamax] 75 mg PO BID 06/02/20 [History] Amlodipine Bes/Olmesartan Med [Amlodipine-Olmesartan 10-20 mg] 1 each PO DAILY 08/23/21 [History] Semaglutide [Ozempic] 0.5 mg SQ 08/23/21 [History] Hx Tetanus, Diphtheria Vaccination/Date Given: No Hx Influenza Vaccination/Date Given: No Hx Pneumococcal Vaccination/Date Given: No Immunizations Up to Date: Yes Travel Risk - International Travel Have you traveled outside of the country in past 3 weeks: No - Coronavirus Screening Are you exhibiting any of the following symptoms?: No Close contact with a COVID-19 positive Pt in past 14-21 Days: No - Vaccine Status Have you recieved a Covid-19 vaccination: Yes [employer]: [employer] - Review of Systems Constitutional: No Symptoms Eyes: No Symptoms Ears, Nose, & Throat: No Symptoms Respiratory: No Symptoms Cardiac: Chest Pain Abdominal/Gastrointestinal: No Symptoms Genitourinary Symptoms: No Symptoms Musculoskeletal: Back Pain Skin: No Symptoms Neurological: No Symptoms Psychological: No Symptoms Endocrine: No Symptoms Hematologic/Lymphatic: No Symptoms Immunological/Allergic: No Symptoms - Past Medical History Pertinent Past Medical History: Yes Neurological History: No Pertinent History ENT History: No Pertinent History Respiratory History: Pneumonia Endocrine Medical History: No Pertinent History, Other Musculoskeletal History: No Pertinent History GI Medical History: No Pertinent History History: No Pertinent History Psycho-Social History: No Pertinent History Female Reproductive Disorders: No Pertinent History Other Medical History: Lupus, - Past Surgical History Past Surgical History: Yes (ablasion, c section, gall blad) Neuro Surgical History: No Pertinent History Cardiac: No Pertinent History Respiratory: No Pertinent History Gastrointestinal: Cholecystectomy Genitourinary: No Pertinent History Musculoskeletal: No Pertinent History Female Surgical History: Other Other Surgical History: ablasion, c section, cholecystectomy, - Social History Smoking Status: Current every day smoker How long have you smoked: 30 yrs Exposure to second hand smoke: Yes Drug Use: none Patient Lives Alone: Yes - Female History Hx Now: No - Nursing Vital Signs Nursing Vital Signs: Initial Vital Signs Temperature 97.8 F 08/23/21 17:49 Pulse Rate 92 H 08/23/21 17:49 Respiratory Rate 20 08/23/21 17:49 Blood Pressure 129/89 08/23/21 17:49 O2 Sat by Pulse Oximetry 99 08/23/21 17:49 Pain Scale Pain Intensity 3 - Physical Exam General Appearance: no apparent distress, alert Eye Exam: PERRL/EOMI, eyes nml inspection Ears, Nose, Throat Exam: normal ENT inspection, TMs normal, pharynx normal, moist mucous membranes Neck Exam: normal inspection, non-tender, supple, full range of motion Respiratory Exam: normal breath sounds, chest tenderness (Left shoulder blade area tenderness, no rash, no crepitus), lungs clear Gastrointestinal/Abdomen Exam: soft, normal bowel sounds, No tenderness Back Exam: normal inspection, normal range of motion Extremity Exam: normal inspection, normal range of motion Neurologic Exam: alert, oriented x 3, cooperative Skin Exam: normal color SpO2 Interpretation: normal SpO2: 96 O2 Delivery: Room Air Ordered Tests: Active Orders 24 hr Category Date Time Status Epic Manager STAT Care 08/23/21 18:14 Active EKG-ER Only STAT Care 08/23/21 18:13 Active IV Insertion STAT Care 08/23/21 18:13 Active CHEST WITH CONTRAST [CT] Stat Exams 08/23/21 18:14 Taken CBC W DIFF Stat Lab 08/23/21 18:22 Completed CMP Stat Lab 08/23/21 18:22 Completed NT PRO BNP Stat Lab 08/23/21 18:22 Completed PT INR [PROTIME WITH INR] Stat Lab 08/23/21 20:49 Ordered PTT Stat Lab 08/23/21 20:49 Ordered TROPONIN Q3H Lab 08/23/21 18:22 Completed TROPONIN Q3H Lab 08/23/21 21:15 Ordered Medication Summary Generic Name Dose Route Start Last Admin Trade Name Freq PRN Reason Stop Dose Admin Apixaban 10 mg 08/23/21 22:00 Apixaban 2.5 Mg Tablet PO 09/22/21 21:59 BID SHARMILA Enoxaparin Sodium 64 mg 08/23/21 21:00 Enoxaparin Sodium 80 Mg/0.8 Ml Syringe SQ 09/22/21 20:59 Q12H SHARMILA Discontinued Medications Generic Name Dose Route Start Last Admin Trade Name Freq PRN Reason Stop Dose Admin Aspirin 324 mg 08/23/21 18:13 08/23/21 18:54 Aspirin 81 Mg Tab.Chew PO 08/23/21 18:14 324 mg STAT ONE Administration Aspirin Confirm 08/23/21 18:54 Aspirin 81 Mg Tab.Chew Administered 08/23/21 18:55 Dose 324 mg .ROUTE .STK-MED ONE Morphine Sulfate 4 mg 08/23/21 18:13 08/23/21 18:55 Morphine Sulfate 4 Mg/Ml Injection IV 08/23/21 18:14 4 mg STAT ONE Administration Morphine Sulfate Confirm 08/23/21 18:54 Morphine Sulfate 4 Mg/Ml Injection Administered 08/23/21 18:55 Dose 4 mg .ROUTE .STK-MED ONE Ondansetron HCl 4 mg 08/23/21 18:13 08/23/21 18:55 Ondansetron Hcl 4 Mg/2 Ml Vial IV 08/23/21 18:14 4 mg STAT ONE Administration Ondansetron HCl Confirm 08/23/21 18:54 Ondansetron Hcl 4 Mg/2 Ml Vial Administered 08/23/21 18:55 Dose 4 mg .ROUTE .STK-MED ONE Lab/Rad Data: Laboratory Result Diagrams 08/23/21 18:22 08/23/21 18:22 Laboratory Results 08/23/21 08/23/21 08/23/21 Range/Units 18:22 18:22 18:22 WBC (4.0-10.5) K/mm3 RBC (4.1-5.4) M/mm3 Hgb (12.0-16.0) gm/dl Hct (35-47) % MCV (78-100) fl MCH (26-32) pg MCHC (32-36) g/dl RDW (11.5-14.0) % Plt Count (150-450) K/mm3 MPV (7.5-11.0) fl Gran % (36.0-66.0) % Eos # (Auto) (0-0.5) Absolute Lymphs (auto) (1.0-4.6) Absolute Monos (auto) (0.0-1.3) Lymphocytes % (24.0-44.0) % Monocytes % (0.0-12.0) % Eosinophils % (0.00-5.0) % Basophils % (0.0-0.4) % Absolute Granulocytes (1.4-6.9) Basophils # (0-0.4) Sodium 137 (137-145) mmol/L Potassium 3.3 L (3.5-5.1) mmol/L Chloride 101 (98-107) mmol/L Carbon Dioxide 25 (22-30) mmol/L Anion Gap 15.0 (5-15) MEQ/L BUN 12 (7-17) mg/dL Creatinine 0.84 (0.52-1.04) mg/dL Estimated GFR > 60.0 ML/MIN Glucose 106 (74-106) mg/dL Calcium 9.4 (8.4-10.2) mg/dL Total Bilirubin 0.60 (0.2-1.3) mg/dL AST 23 (14-36) U/L ALT 19 (0-35) U/L Alkaline Phosphatase 74 (38-126) U/L Troponin I < 0.012 (0.000-0.034) ng/mL NT-Pro-B Natriuret Pep 34.3 (0-450) pg/mL Serum Total Protein 7.4 (6.3-8.2) g/dL Albumin 4.0 (3.5-5.0) g/dL 08/23/21 Range/Units 18:22 WBC 9.9 (4.0-10.5) K/mm3 RBC 4.69 (4.1-5.4) M/mm3 Hgb 14.9 (12.0-16.0) gm/dl Hct 45.0 (35-47) % MCV 95.9 (78-100) fl MCH 31.8 (26-32) pg MCHC 33.1 (32-36) g/dl RDW 13.9 (11.5-14.0) % Plt Count 276 (150-450) K/mm3 MPV 9.9 (7.5-11.0) fl Gran % 62.7 (36.0-66.0) % Eos # (Auto) 0.05 (0-0.5) Absolute Lymphs (auto) 2.85 (1.0-4.6) Absolute Monos (auto) 0.77 (0.0-1.3) Lymphocytes % 28.8 (24.0-44.0) % Monocytes % 7.8 (0.0-12.0) % Eosinophils % 0.5 (0.00-5.0) % Basophils % 0.2 (0.0-0.4) % Absolute Granulocytes 6.21 (1.4-6.9) Basophils # 0.02 (0-0.4) Sodium (137-145) mmol/L Potassium (3.5-5.1) mmol/L Chloride (98-107) mmol/L Carbon Dioxide (22-30) mmol/L Anion Gap (5-15) MEQ/L BUN (7-17) mg/dL Creatinine (0.52-1.04) mg/dL Estimated GFR ML/MIN Glucose (74-106) mg/dL Calcium (8.4-10.2) mg/dL Total Bilirubin (0.2-1.3) mg/dL AST (14-36) U/L ALT (0-35) U/L Alkaline Phosphatase (38-126) U/L Troponin I (0.000-0.034) ng/mL NT-Pro-B Natriuret Pep (0-450) pg/mL Serum Total Protein (6.3-8.2) g/dL Albumin (3.5-5.0) g/dL - Progress Progress: re-examined Air Movement: good Progress Note: 08/23/21 20:53 50 years old is evaluated for upper back pain without shortness of breath. Patient is maintaining oxygen saturation around 98% on room air, not in any distress. Baseline work-up grossly unremarkable. CTA showed extensive pulmonary embolism involving right main pulmonary artery extending into lobar branches of the right upper and right lower lobe and a small subsegmental in the right middle lobe. Discussed with Dr. Costello, recommended starting on Lovenox and 10 mg Eliquis and patient is being admitted here. I have discussed with patient the results of CTA and need for admission and she agrees with that. Blood Culture(s) Obtained: No Antibiotics given: No Discussed with : Néstor Will see patient in: hospital (observation) Counseled pt/family regarding: lab results, diagnosis, rad results, smoking cessation - Departure Departure Disposition: Observation Clinical Impression: Pulmonary embolism Pulmonary embolism Qualifiers: Pulmonary embolism type: unspecified Chronicity: acute Acute cor pulmonale presence: without acute cor pulmonale Qualified Code(s): I26.99 - Other pulmonary embolism without acute cor pulmonale Condition: Stable Critical Care Time: No Referrals: [facility] [Primary Care Provider] - Follow up/PCP as directed
[2021-08-23 19:10] LABS: ALKALINE PHOSPHATASE 74 U/L (38-126); BLOOD UREA NITROGEN 12 mg/dL (7-17); CHLORIDE 101 mmol/L (98-107); Calcium 9.4 mg/dL (8.4-10.2); Carbon Dioxide 25 mmol/L (22-30); Creatinine 1 0.84 mg/dL (0.52-1.04); EST GLOMERULAR FILTRATION RATE > 60.0 ML/MIN; Glucose 106 mg/dL (74-106); Potassium 3.3 mmol/L (3.5-5.1); SGOT/AST 23 U/L (14-36); SGPT/ALT 19 U/L (0-35); SODIUM 137 mmol/L (137-145); Total Protein 7.4 g/dL (6.3-8.2)
[2021-08-23] MEDS ORDERED: ENOXAPARIN SODIUM SQ SCH (21:00)
[2021-08-23 21:10] LABS: INR 1.13 (0.8-3.0); PROTIME 13.3 SECONDS (9.4-12.5)
[2021-08-23 21:13] LABS: PTT 29.2 SECONDS (25.1-36.5)
[2021-08-23] MEDS ORDERED: ELIQUIS 2.5 MG TABLET PO SCH (22:00)
[2021-08-23 22:15] LABS: INFLUENZA A NEGATIVE (NEGATIVE); INFLUENZA B NEGATIVE (NEGATIVE); RESPIRATORY SYNCTIAL VIRUS NEGATIVE (Negative); SARS-CoV-2 Xpert Express NEGATIVE (NEGATIVE)
[2021-08-23] MEDS ORDERED: DUONEB 0.5-3 MG/3 ml Neb IH PRN (22:43)
[2021-08-23] MEDS ORDERED: TYLENOL 325 MG PO PRN (22:43)
[2021-08-24] MEDS: NORCO 5/325 MG PO PRN ×3 (05:35→13:18)
[2021-08-24 06:41] LABS: Basophil (Absolute #) 0.01 (0-0.4); Eosinophil % 0.8 % (0.00-5.0); Eosinophil (Absolute #) 0.07 (0-0.5); Hematocrit 43.3 % (35-47); Hemoglobin 14.2 gm/dl (12.0-16.0); Lymphocyte (Absolute #) 2.09 (1.0-4.6); Lymphocytes % 23.6 % (24.0-44.0); Mean Cell Volume 96.2 fl (78-100); Mean Corpuscular Hemoglobin 31.6 pg (26-32); Mean Corpuscular Hgb Concent. 32.8 g/dl (32-36); Mean Platelet Volume 10.4 fl (7.5-11.0); Neutrophil % 66.5 % (36.0-66.0); Platelet Count 272 K/mm3 (150-450); White Blood Count 8.9 K/mm3 (4.0-10.5)
[2021-08-24 08:05] LABS: ALBUMIN 3.3 g/dL (3.5-5.0); ALKALINE PHOSPHATASE 67 U/L (38-126); ANION GAP 12.8 MEQ/L (5-15); BLOOD UREA NITROGEN 11 mg/dL (7-17); CHLORIDE 104 mmol/L (98-107); Carbon Dioxide 23 mmol/L (22-30); Creatinine 1 0.65 mg/dL (0.52-1.04); EST GLOMERULAR FILTRATION RATE > 60.0 ML/MIN; Glucose 87 mg/dL (74-106); Potassium 3.7 mmol/L (3.5-5.1); SGOT/AST 20 U/L (14-36); SGPT/ALT 17 U/L (0-35); SODIUM 136 mmol/L (137-145); Total Protein 6.5 g/dL (6.3-8.2)
--- NOTE | 2021-08-24 08:50 | XRAY ---
Indication: Pain with cough. Elevated d-dimer. Multiple contiguous axial images obtained through the chest using 80 cc Isovue 370 contrast and PE protocol. Comparison: December 20, 2018 There is good opacification of the pulmonary arteries to include the lobar and segmental branches. New nonoccluding pulmonary emboli in the distal right main pulmonary artery extending into right upper and right lower lobe lobar and segmental branches. Heart not enlarged. Aorta is normal in course and caliber. No pathologic mediastinal/hilar lymphadenopathy. Lungs again demonstrate minimal bilateral dependent atelectasis and biapical subpleural cystic changes. Right upper lobe demonstrates new peripheral patchy groundglass airspace disease. No effusion or pneumothorax. Bony thorax intact. Limited upper abdomen again demonstrates fatty liver, small left adrenal adenoma, and cholecystectomy clips. Impression: 1. New nonoccluding right upper and right lower lobe pulmonary emboli. 2. New peripheral right upper lobe patchy groundglass airspace disease. 3. Again incidental biapical subpleural cystic changes, fatty liver, and left adrenal adenoma. Comment: Preliminary interpretation made by [facility]. No critical discrepancy.
[2021-08-24] MEDS ORDERED: PROTONIX 40 MG IV IV SCH (10:00)
[2021-08-24] MEDS ORDERED: TOPIRAMATE PO SCH (11:00)
[2021-08-24] MEDS ORDERED: NON-FORMULARY ITEM (Semaglutide [Ozempic] 1 MG/0.75 ML Pen.Injctr) SQ SCH (11:00)
[2021-08-24] MEDS ORDERED: Pepcid 20 MG PO SCH (11:00)
[2021-08-24] MEDS ORDERED: ELIQUIS 2.5 MG TABLET PO SCH (11:00)
[2021-08-24] MEDS ORDERED: Singulair 10 MG PO SCH (11:00)
[2021-08-24 13:37] VITALS: BP 102/75; PULSE 84; O2SAT 97
[2021-08-24] MEDS ORDERED: NON-FORMULARY ITEM (Topiramate [Topamax] 25 MG Tablet) PO SCH (22:00)
[2021-08-24] MEDS ORDERED: ESZOPICLONE 3 MG PO SCH (22:00)
[2021-08-25] MEDS ORDERED: Flonase NASAL NS SCH (10:00)
--- NOTE | 2021-08-27 12:55 | SSS ---
DISCHARGE DIAGNOSES: 1) LEFT SIDED CHEST PAIN WITH DEEP BREATHS. 2) ELEVATED D-DIMER. HISTORY OF PRESENT ILLNESS: The patient is a 50-year-old white female who began having some problems with her chest on the right side. She had a D-dimer drawn as an outpatient that was elevated. She presented to the emergency room for further evaluation and management and was found to have pulmonary emboli. The patient was admitted to the hospital for further evaluation and management. PAST MEDICAL/SURGICAL HISTORY: Otherwise significant for history of migraine headaches. Surgical history included cholecystectomy, ablation, section. HOME MEDICATIONS: Lunesta 3 mg at night for sleep, famotidine 200 mg daily for gastroesophageal reflux disease, Flonase nasal spray, Singulair 10 mg daily for allergies. Ozempic 0.5 mg weekly and Topamax 75 mg b.i.d. ALLERGIES: NKDA. PHYSICAL EXAMINATION: VITAL SIGNS: The patient's vital signs in the emergency room showed temperature 97.8F, pulse 92, respiratory rate 20 and blood pressure 129/89 with 99% O2 saturation. HEENT: Normocephalic, atraumatic. Pupils equal round reactive to light. Extraocular movements intact. Oropharynx is pink and moist. NECK: Supple without lymphadenopathy, thyromegaly or JVD. CHEST: Clear to auscultation. HEART: Regular rate and rhythm without murmurs, rubs or gallops. ABDOMEN: Soft. No palpable masses. EXTREMITIES: Without cyanosis, clubbing or edema. There is specifically no swelling although the patient has reported she has some right lower extremity pain behind the knee. LAB DATA AND TESTS: The patient's labs showed a normal CBC. Her troponin less than 0.012. Pro-BNP normal at 34.3. Metabolic panel was totally normal except potassium slightly low at 3.3. INR 1.13. COVID, influenza and respiratory syncytial virus were all negative. The CT-A scan of the chest showed new nonoccluding right upper and right lower lobe pulmonary emboli, new peripheral right upper lobe patchy groundglass airspace disease and incidental biapical subpleural cystic changes, fatty liver and left adrenal adenoma. HOSPITAL COURSE: The patient was placed on the medicine callejas. She was given Lovenox subcu and started on Eliquis at 10 mg b.i.d. The patient has felt fine all day other than the pain. She was given some Landrum for which she reported really was not much difference. She was felt to be ready for discharge home on Eliquis 10 mg twice a day for two days and 5 mg twice a day and to follow up in the office. She was suggested to picker and sorter load and unload an O2 saturation monitor for evaluation and to have an outpatient venous Doppler of the right lower extremity to rule out the presence of underlying deep vein thrombosis.
== END 2021-08-24 13:36 | disposition home or self-care (01) ==
LOC: ED 17:43 → MED SURG 22:37
PROVIDERS: ADMIT Family Medicine; ATTEND Family Medicine
DX: I26.99 Other pulmonary embolism without acute cor pulmonale (principal); R79.89 Other specified abnormal findings of blood chemistry; I10 Essential (primary) hypertension; Z20.828 Contact with and (suspected) exposure to other viral communicable diseases; Z72.0 Tobacco use; Z79.899 Other long term (current) drug therapy
CPT/HCPCS: 0241U; 36000; 36415; 71260; 80053; 83880; 84484; 85025; 85610; 85730; 93005; 93041; 93268; 96372; 96374; 96375; 99284; G0378; J1650; J2270; J2405; A9270-GY

== ENCOUNTER 2024-12-19 06:50 | Day surgery (SDC) | payer OTHER ==
[~2024-12-19 06:50] MED LIST: Marcaine Mpf 0.5% Vial 30 Ml ONE; Xylocaine 1% Vial 30 ML PF IJ ONE
[2024-12-19] MEDS ORDERED: TYLENOL EXTRA STRENGTH 500 MG ONE (07:26)
[2024-12-19 07:27] LABS: Absolute Neutrophil Ct (ANC) 4.47 x10^3/uL (1.56-6.13); BASOPHIL % 0.5 % (0.1-1.2); Basophil (Absolute #) 0.04 x10^3/uL (0.01-0.08); Eosinophil % 1.8 % (0.7-5.8); Eosinophil (Absolute #) 0.15 x10^3/uL (0.04-0.36); Hematocrit 43.3 % (34.1-44.9); Hemoglobin 14.6 g/dL (11.2-15.7); IMMATURE GRAN # 0.03 x10^3u/L (0.001-0.031); IMMATURE GRAN % 0.4 % (0.001-0.429); Lymphocyte (Absolute #) 2.93 x10^3/uL (1.18-3.74); Lymphocytes % 35.4 % (19.3-51.7); Mean Cell Volume 93.7 fL (79.4-94.8); Mean Corpuscular Hemoglobin 31.6 pg (25.6-32.2); Mean Corpuscular Hgb Concent. 33.7 g/dL (32.2-35.5); Monocyte (Absolute #) 0.65 x10^3/uL (0.24-0.86); Monocytes % 7.9 % (4.7-12.5); Platelet Count 254 x10^3/uL (182-369); Red Blood Count 4.62 x10^6/uL (3.93-5.22); Red Cell Distribution Width 13.5 % (11.7-14.4); White Blood Count 8.3 x10^3/uL (3.98-10.04)
[2024-12-19] MEDS: Lactated Ringers 1,000 ML IV SCH (07:28)
[2024-12-19] MEDS: CEFAZOLIN 2 GM/100 ML NaCl 2 GM/100 ML IVPB IV SCH (07:28)
[2024-12-19] MEDS: celeBREX 100 MG PO ONE (07:29)
[2024-12-19] MEDS: Decadron 4 MG PO ONE (07:29)
[2024-12-19] MEDS: NEURONTIN PO ONE (07:29)
[2024-12-19] MEDS: TYLENOL EXTRA STRENGTH 500 MG PO ONE (07:29)
[2024-12-19 07:42] LABS: ALBUMIN 4.2 g/dL (3.5-5.0); ANION GAP 14.8 MEQ/L (5-15); BILIRUBIN,TOTAL 0.4 mg/dL (0.2-1.3); Calcium 9.3 mg/dL (8.4-10.2); Creatinine 1 0.76 mg/dL (0.52-1.04); EST GLOMERULAR FILTRATION RATE 94.2 ML/MIN; INR 0.92 (0.8-3.0); PROTIME 10.1 SECONDS (9.4-12.5); Potassium 3.8 mmol/L (3.5-5.1); Total Protein 7.3 g/dL (6.3-8.2)
[2024-12-19 07:46] VITALS: RESP 16
[2024-12-19] MEDS ORDERED: ROCURONIUM BROMIDE IV ONE (10:28)
[2024-12-19] MEDS ORDERED: SUBLIMAZE 100 MCG/2 ML ONE ×2 (10:28→11:17)
[2024-12-19] MEDS ORDERED: propofoL IV ONE (10:28)
[2024-12-19] MEDS ORDERED: Versed 2 MG/2 ML Injection ONE (10:29)
[2024-12-19] MEDS ORDERED: Lactated Ringers 1,000 ML IV ONE (12:19)
[2024-12-19] MEDS ORDERED: BRIDION 200MG/2ML IV ONE (12:46)
[2024-12-19] MEDS ORDERED: TORAdol 30 mg Injection ONE (12:50)
--- NOTE | 2024-12-19 13:13 | XRAY ---
Indication: Right foot Lapidus arthrodesis 1st tarsometatarsal joint, Silver osteotomy, medial collateral ligament repair 1st MTP, 2nd metatarsal Norbert osteotomy, plantar plate repair, and 2nd hammertoe correction. Intraoperative fluoroscopy provided for 3 minutes 34 seconds. 25 digital spot images submitted for interpretation ultimately demonstrates 1st tarsometatarsal arthrodesis, instrumentation medial 1st MTP joint, 2nd metatarsal head Norbert osteotomy, and fusion 2nd toe. Correlate with intraoperative findings/report.
[2024-12-19 14:51] VITALS: BP 127/93; PULSE 79; TEMP 97.8; O2SAT 95
--- NOTE | 2024-12-19 16:10 | XRAY ---
Three minutes and 34 seconds of fluoroscopy was used in surgery for a right foot Lapidus arthrodesis 1st tarsometatarsal joint, Silver osteotomy, medial collateral ligament repair 1st MTP, 2nd metatarsal Norbert osteotomy, plantar plate repair, and 2nd hammertoe correction.
--- NOTE | 2024-12-20 07:17 | OP ---
SURGERY DATE/TIME: 12/19/2024 6080-2529 PREOPERATIVE DIAGNOSES: 1) Hallux valgus, right foot. 2) Hypermobility, right first tarsometatarsal joint. 3) Metatarsal deformity. 4) Ligament laxity, medical collateral ligament, first metatarsophalangeal joint. 5) Plantar plate injury. 6) Hammertoe, right foot. POSTOPERATIVE DIAGNOSES: 1) Hallux valgus, right foot. 2) Hypermobility, right first tarsometatarsal joint. 3) Metatarsal deformity. 4) Ligament laxity, medical collateral ligament, first metatarsophalangeal joint. 5) Plantar plate injury. 6) Hammertoe, right foot. PROCEDURES: 1) Lapidus arthrodesis, first tarsometatarsal joint, right foot. 2) Silver osteotomy, right first metatarsophalangeal joint, with lateral release. 3) Medical collateral ligament repair. 4) Norbert osteotomy, second metatarsal head. 5) Plantar plate repair. 6) Hammertoe correction, right second digit. SURGEON: Alek Petersen DPM. ASSISTANTS: JESU Fung and Eldon Carrasco NP-Jennifer. ANESTHESIA: General, plus a postop local block consisting of 30 mL of a 1:1 mixture of 1% lidocaine plain and 0.5% bupivacaine plain. HEMOSTASIS: Ankle tourniquet set to 250 mmHg for a total of 90 total tourniquet minutes. ESTIMATED BLOOD LOSS: Approximately 15 mL. MATERIALS: 1) InCore Lapidus nail 5.9 x 28 mm, right; 3.5 x 46 and 3.5 x 28 screws; a 2.0 x 14 headed partially threaded Norbert screw. 2) MaxBraid fourth plantar plate and a 2.5 x 34 mm VPC, 4-0 Monocryl, 3-0 nylon. INJECTABLES: 30 mL of a 1:1 mixture of 1% lidocaine plain and 0.5% bupivacaine plain injected in a Hastings block-type fashion. INDICATIONS: The patient is a very pleasant 54-year-old female very well known to my service for pain to the right foot particularly underneath the ball of the foot in the area of the second metatarsophalangeal joint. The patient exhibited significant pain with compression through the joint, as well as a positive Jen test. The patient does have a bunion and does have some hypermobility associated with her bunion as well as in her weightbearing status. Decision was made based on the hypermobility to address the bunion to restore the axis of alignment underneath the ball of the first great toe, as well as repair the plantar plate by getting the pressure off this site. In order to do so, the patient is amenable to going forward with a reconstruction of her forefoot. All risks, complications, and benefits of surgical intervention including, but not limited to, infection, hematoma, seroma, possibility of delayed wound healing, non-wound healing, possible failure of bone healing and delayed bone healing had been discussed. No guarantees were provided as to the outcome of surgical intervention. Plenty of time was allowed for the patient to ask questions, which were answered to her apparent satisfaction. It is at this time we decided to proceed. DESCRIPTION OF PROCEDURE AND FINDINGS: Patient was brought into the operating room and placed on the operating room table in the supine position. At this time, general anesthesia was administered until the patient was adequately sedated. A well-padded ankle tourniquet was applied to the patient's right ankle just above the malleoli, and the tourniquet was set to 250 mmHg. At this time, the right lower extremity was prepped and draped in the typical sterile fashion and lowered onto the surgical field. At this moment, attention was directed to the first tarsometatarsal joint under fluoroscopic guidance. Once this was identified, the first tarsometatarsal joint, a linear incision was made utilizing a 15 blade. An Esmarch was utilized to exsanguinate the foot, and then the tourniquet was inflated. A 15 blade was then utilized to make an incision just medial to the extensor hallucis longus tendon, which was carried down to the level of the tarsometatarsal joint with careful dissection, being careful not to damage any neurovascular structures. Any neurovascular structures that were encountered were either hand tied or bovied depending upon luminal caliber. From that standpoint, once the joint was identified, a capsular dissection was performed, as well as the area between the medial cuneiform and the intermediate cuneiform. Once this was performed, the InCore Lapidus paddle was then introduced and assessed in an appropriate position. Once this was in appropriate position, a 2 mm K-wire was then introduced into the medial cuneiform as cost specialist specifications. From that standpoint, decision was made to proceed with the cut guide, first focusing our attention on the longitudinal axis of the metatarsal with the cut guide parallel with the beam of the fluoroscopy, checking its position, deeming it to be adequate. Once this was performed, a 41 mm sagittal saw was utilized through the second hole on the metatarsal cut guide. Once this was performed, the jig was then removed, and the cut guide was then placed in a position parallel to the base of the second tarsometatarsal joint. Once this was performed, the third slot from distal was then utilized to resect the medial cuneiform distal articulation. This only took out a small part of the articulation. Hand resection of the joint was then performed at this time. Removal of any remaining cartilage was then performed, and then the joint was flushed. The InCore Lapidus 5.9 x 28 mm nail was then drilled and placed into the medial cuneiform at this time utilizing the InCore Lapidus nail with the jig distracting the joint. The joint was then prepped and assessed for final position. Being cognizant of the frontal plane rotation as well as intermetatarsal angle, as well as plantar flexion of the first ray, we were able to compress the joint down with adequate correction of the sesamoid position and the frontal plane correction. A foot plate was then introduced and assessing the sagittal plane position, deeming it to be excellent. Decision was made to proceed with pinning of the joint utilizing a 3.5 x 46 mm screw as well as a 3.5 x 28. Final x-rays were taken of this portion of the procedure with the IM angle, frontal plane, and the plantar flexion assessed to be in near perfect position. Following this, a small linear incision was made at the medial aspect of the first MPJ, where capsular dissection was made perpendicular to the joint axis. The joint was then resected. The soft tissue for the capsule was reflected back, and a silver osteotomy took place at the level of the first metatarsal head, removing any atavistic portion of the first metatarsal. Range of motion was assessed and deemed to be adequate. Copious amounts of sterile saline were utilized to flush the joint at this time. Utilizing a 1.45 JuggerKnot, this was anchored into the base of the proximal phalanx, and then under significant tension, we were able to repair the capsule at the medial aspect of the first MPJ in a shortened and contracted position. 2-0 Vicryl was then utilized to coapt the capsule medially, correcting the position of the toe significantly. Following this, attention was directed to the dorsal aspect of the second metatarsophalangeal joint. A linear incision was carried down until the extensor digitorum longus tendon was identified. A Z-lengthening tenotomy was then performed and reflected out of the way utilizing curved mini hemostats. The J stroke was made at the medical and lateral collateral ligaments of the second metatarsal head. The 18 mm sagittal saw was then utilized to make a cut just with the weightbearing surface at the dorsal aspect of the articular surface of the second metatarsophalangeal joint. Once the cut was complete, the metatarsal head was then pushed back approximately 4 mm, exposing the plantar plate, which the tear was completed at this time. A 14 mm, 2.0 partially threaded headed screw was then introduced, gaining excellent compression through the second metatarsal, making sure not to be too proud on the articular cartilage or the weightbearing surface. From that standpoint, a 2.0 MaxBraid was then drilled over the top of the metatarsal over the Norbert, routing 2 ends through the bottom of the foot utilizing a Hernando needle and then routing it through the proximal phalanx base utilizing a Hewson passer in order to repair the plantar plate cradling this structure. Once this was performed, this was hand tied under relatively significant tension with the toe held in a plantar-flexed position. Following this, the proximal interphalangeal joint of the second digit was then resected out utilizing the 18 mm sagittal saw, and then a K-wire was then utilized in a retrograde fashion at the tip of the toe and then anterograded down the longitudinal cortex of the proximal phalanx of the second digit. This position was checked on an AP and a lateral position. A 2.5 x 34 VPC screw was then utilized to hold the position. This was checked, and the position was deemed to be significantly improved. From that standpoint, copious amounts of sterile saline were utilized to flush the surgical sites. 4-0 Monocryl was utilized in a simple interrupted-type fashion to coapt the tendon over the second metatarsophalangeal joint. 4-0 Monocryl was then once again utilized to coapt the subcutaneous skin edges in a simple interrupted buried-type fashion, and then 3-0 nylon was utilized in a horizontal mattress-type fashion to coapt the skin edges. A dressing consisting of Betadine, Adaptic, 4 x 4, Kerlix, ABD, and Omid was applied to the patient's right lower extremity with the foot orthogonal relative to longitudinal axis of the leg.
== END 2024-12-19 15:06 | disposition home or self-care (01) ==
LOC: SDC 06:50
PROVIDERS: ATTEND Podiatrist Foot & Ankle Surgery
DX: M20.11 Hallux valgus (acquired), right foot (principal); M24.874 Other specific joint derangements of right foot, not elsewhere classified; M21.961 Unspecified acquired deformity of right lower leg; M24.274 Disorder of ligament, right foot; M20.41 Other hammer toe(s) (acquired), right foot; S93.514A Sprain of interphalangeal joint of right lesser toe(s), initial encounter
CPT/HCPCS: 28285; 28297; 28299; 28308; 28313; 36415; 73630; 76000; 80053; 85025; 85610; C1713; J0690; J1885; J2250; J2704; J3010; A9270-GY

== ENCOUNTER 2025-03-04 07:17 | Emergency (ER) | payer OTHER ==
[2025-03-04 07:35] VITALS: RESP 16; TEMP 97.8
--- NOTE | 2025-03-04 07:41 | ERPHSYRPT ---
- History of Present Illness Time Seen by Provider: 03/04/25 07:36 Historian: patient Exam Limitations: no limitations Patient Subjective Stated Complaint: patient has left sided abdominal pain that started around 0500, patient states she thinks it is a diverticulitis flare up Triage Nursing Assessment: patient presents to ed guarding left side of abdomen, patient states pain is 10/10, patient abdomen tender on left side upon palpation, abdomen nondistended, bowel sounds active x 4 quadrants, skin N/W/D, vitals WNL Physician History: patient has left sided abdominal pain that started around 0500, patient states she thinks it is a diverticulitis flare up. Patient patient is 54-year-old with history of diverticulitis in the past started having the same type of abdominal pain in the left lower quadrant for approximately 3-4 hours. She denies any fever chills nausea vomiting.. She also denies any blood in the stool or urine Timing/Duration: today Activities at Onset: none Quality: cramping Abdominal Pain Onset Location: LLQ Pain Radiation: no radiation Severity of Pain-Max: moderate Severity of Pain-Current: moderate Associated Symptoms: denies symptoms Previous symptoms: same symptoms as today Body Map: 1 - area of pain Allergies/Adverse Reactions: No Known Drug Allergies Allergy (Verified 03/04/25 07:37) Home Medications: Topiramate [Topamax] 100 mg PO BID 06/02/20 [History] Albuterol Sulfate [Proair Respiclick] 2 puffs IH Q4H PRN PRN 12/18/24 [History] Alprazolam [Xanax] 0.5 tab PO TID 12/18/24 [History] Cyanocobalamin 1000 Mcg/ml [Cyanocobalamin B-12 1000 MCG/ML] 1,000 mcg IJ .MONTHLY 12/18/24 [History] Ergocalciferol (Vitamin D2) [Vitamin D2] 1 cap PO DAILY 12/18/24 [History] Fezolinetant [Veozah] 1 tab PO DAILY 12/18/24 [History] Rosuvastatin Calcium [Crestor] 5 mg PO HS 12/18/24 [History] Trazodone HCl 50 mg [Desyrel 50 mg] 1 tab PO HS 12/18/24 [History] Vitamin B Complex 1 each PO DAILY 12/18/24 [History] Hx Tetanus, Diphtheria Vaccination/Date Given: No Hx Influenza Vaccination/Date Given: Yes Hx Pneumococcal Vaccination/Date Given: No Travel Risk - International Travel Have you traveled outside of the country in past 3 weeks: No - Emerging Infectious Disease Are you exhibiting symptoms associated with any current EIDs: No - Review of Systems Constitutional: No Fever, No Chills Eyes: No Symptoms Ears, Nose, & Throat: No Symptoms Respiratory: No Cough, No Dyspnea Cardiac: No Chest Pain, No Edema, No Syncope Abdominal/Gastrointestinal: Abdominal Pain, No Nausea, No Vomiting, No Diarrhea, No Hematemesis, No Hematochezia Genitourinary Symptoms: No Dysuria Musculoskeletal: No Back Pain, No Neck Pain Skin: No Rash Neurological: No Dizziness, No Focal Weakness, No Sensory Changes Psychological: No Symptoms Endocrine: No Symptoms All Other Systems: Reviewed and Negative - Past Medical History Pertinent Past Medical History: Yes Neurological History: No Pertinent History ENT History: No Pertinent History Cardiac History: Deep Vein Thrombosis Respiratory History: COPD, Pneumonia, Other Endocrine Medical History: Other Musculoskeletal History: No Pertinent History GI Medical History: No Pertinent History History: No Pertinent History Psycho-Social History: Depression Female Reproductive Disorders: No Pertinent History Other Medical History: Lupus. current smoker. diverticulitus - Past Surgical History Past Surgical History: Yes (ablasion, c section, gall blad) Neuro Surgical History: No Pertinent History Cardiac: No Pertinent History Respiratory: No Pertinent History Gastrointestinal: Cholecystectomy Genitourinary: No Pertinent History Musculoskeletal: No Pertinent History, Orthopedic Surgery Female Surgical History: Other Other Surgical History: right foot surgery, ablasion, c section, cholecystectomy, - Female History Hx Now: No - Social History Smoking Status: Current every day smoker Exposure to second hand smoke: Yes Drug Use: none - Social Determinants of Health Will the patient participate in the screening: Yes Do you worry about a steady place to live?: No Do you have any problems with any of the following?: No known problems In the past 12 months,have you had to go without utilities?: No Transportation Issues: No Has anyone in your support network made you feel unsafe?: No Have you or anyone in your house had to go w/o enough food: No - Nursing Vital Signs Nursing Vital Signs: Initial Vital Signs Temperature 97.8 F 03/04/25 07:18 Pulse Rate 63 03/04/25 07:18 Respiratory Rate 16 03/04/25 07:18 Blood Pressure 112/67 03/04/25 07:18 O2 Sat by Pulse Oximetry 99 03/04/25 07:18 Pain Scale Pain Intensity 10 - Physical Exam General Appearance: no apparent distress, alert Eye Exam: PERRL/EOMI, eyes nml inspection Ears, Nose, Throat Exam: normal ENT inspection, pharynx normal, moist mucous membranes Neck Exam: normal inspection, non-tender, supple, full range of motion Respiratory Exam: normal breath sounds, lungs clear, No respiratory distress Cardiovascular Exam: regular rate/rhythm, normal heart sounds Gastrointestinal/Abdomen Exam: soft, tenderness (LLQ), No mass Pelvic Exam: not done Rectal Exam: deferred Back Exam: normal inspection, normal range of motion, No CVA tenderness, No vertebral tenderness Extremity Exam: normal inspection, normal range of motion, pelvis stable Neurologic Exam: alert, oriented x 3, cooperative, normal mood/affect, nml cerebellar function, sensation nml, No motor deficits Skin Exam: normal color, warm, dry SpO2 Interpretation: normal SpO2: 99 O2 Delivery: Room Air - Course Nursing assessment & vital signs reviewed: Yes Ordered Tests: Active Orders 24 hr Category Date Time Status AMYLASE Stat Lab 03/04/25 07:47 Completed CBC W DIFF Stat Lab 03/04/25 07:47 Completed CMP Stat Lab 03/04/25 07:47 Completed LIPASE Stat Lab 03/04/25 07:47 Completed Manual Differential NC Stat Lab 03/04/25 07:47 Completed UA W/RFX UR CULTURE Stat Lab 03/04/25 08:35 Completed Medication Summary Discontinued Medications Generic Name Dose Route Start Last Admin Trade Name Freq PRN Reason Stop Dose Admin Hydromorphone HCl 1 mg 03/04/25 08:49 03/04/25 08:55 Hydromorphone 1 Mg/1ml Inj IV 03/04/25 08:50 1 mg STAT ONE Administration Hydromorphone HCl Confirm 03/04/25 08:55 Hydromorphone 1 Mg/1ml Inj Administered 03/04/25 08:56 Dose 1 mg .ROUTE .STK-MED ONE Sodium Chloride 1,000 mls @ 999 mls/hr 03/04/25 07:35 03/04/25 07:52 Sodium Chloride 0.9% 1000 Ml IV 03/04/25 08:35 999 mls/hr .Q1H1M STA Administration Sodium Chloride Confirm 03/04/25 07:49 Sodium Chloride 0.9% 1000 Ml Administered 03/04/25 07:50 Dose 1,000 mls @ ud .ROUTE .STK-MED ONE Metronidazole 500 mg in 100 mls @ 200 mls/hr 03/04/25 08:17 03/04/25 09:15 Flagyl 500 Mg Ivpb IV 03/04/25 08:46 Infused STAT STA Infusion Metronidazole Confirm 03/04/25 08:20 Flagyl 500 Mg Ivpb Administered 03/04/25 08:21 Dose 500 mg in 100 mls @ ud IV .STK-MED ONE Ketorolac Tromethamine 30 mg 03/04/25 08:34 03/04/25 08:46 Ketorolac Tromethamine 30 Mg/Ml Inj IV 03/04/25 08:35 30 mg STAT ONE Administration Ketorolac Tromethamine Confirm 03/04/25 08:45 Ketorolac Tromethamine 30 Mg/Ml Inj Administered 03/04/25 08:46 Dose 30 mg .ROUTE .STK-MED ONE Morphine Sulfate 4 mg 03/04/25 07:35 03/04/25 07:53 Morphine Sulfate 4 Mg/Ml Injection IV 03/04/25 07:36 4 mg STAT ONE Administration Morphine Sulfate Confirm 03/04/25 07:49 Morphine Sulfate 4 Mg/Ml Injection Administered 03/04/25 07:50 Dose 4 mg .ROUTE .STK-MED ONE Ondansetron HCl 4 mg 03/04/25 07:35 03/04/25 07:51 Ondansetron Hcl 4 Mg/2 Ml Vial IV 03/04/25 07:36 4 mg STAT ONE Administration Ondansetron HCl Confirm 03/04/25 07:49 Ondansetron Hcl 4 Mg/2 Ml Vial Administered 03/04/25 07:50 Dose 4 mg .ROUTE .STK-MED ONE Pantoprazole Sodium 40 mg 03/04/25 07:35 03/04/25 07:53 Pantoprazole 40 Mg Vial IV 03/04/25 07:36 40 mg STAT ONE Administration Pantoprazole Sodium Confirm 03/04/25 07:49 Pantoprazole 40 Mg Vial Administered 03/04/25 07:50 Dose 40 mg IV .STK-MED ONE Lab/Rad Data: Laboratory Result Diagrams 03/04/25 07:47 03/04/25 07:47 Laboratory Results 03/04/25 03/04/25 03/04/25 Range/Units 08:35 07:47 07:47 WBC 14.1 H (3.98-10.04) x10^3/uL RBC 4.74 (3.93-5.22) x10^6/uL Hgb 15.2 (11.2-15.7) g/dL Hct 44.7 (34.1-44.9) % MCV 94.3 (79.4-94.8) fL MCH 32.1 (25.6-32.2) pg MCHC 34.0 (32.2-35.5) g/dL RDW 13.6 (11.7-14.4) % Plt Count 289 (182-369) x10^3/uL MPV 9.8 (9.4-12.3) fL Segmented Neutrophils 47 (34.0-71.1) % Lymphocytes (Manual) 41 (19.3-51.7) % Monocytes (Manual) 6 (4.7-12.5) % Eosinophils (Manual) 1 (0.7-5.8) % Atypical Lymphocytes 5 % Platelet Estimate NORMAL (NORMAL) RBC Morphology NORMAL Sodium 141 (135-145) mmol/L Potassium 3.3 L (3.5-5.1) mmol/L Chloride 112 H (98-107) mmol/L Carbon Dioxide 19 L (22-30) mmol/L Anion Gap 13.1 (5-15) MEQ/L BUN 9 (7-17) mg/dL Creatinine 0.87 (0.52-1.04) mg/dL Estimated GFR 80.1 ML/MIN Glucose 146 H (74-106) mg/dL Calcium 9.2 (8.4-10.2) mg/dL Total Bilirubin 0.20 (0.2-1.3) mg/dL AST 37 H (14-36) U/L ALT 46 H (0-35) U/L Alkaline Phosphatase 80 (38-126) U/L Serum Total Protein 7.4 (6.3-8.2) g/dL Albumin 4.1 (3.5-5.0) g/dL Amylase 68 (30-110) U/L Lipase 194 (23-300) U/L Urine Color Dark Yellow A (Yellow) Urine Appearance Clear (Clear) Urine pH 5.5 (4.6-8.0) Ur Specific [place] 1.020 (1.005-1.030) Urine Protein Negative (Negative) Urine Glucose (UA) Negative (Negative) mg/dL Urine Ketones Trace A (Negative) Urine Blood Negative (Negative) Urine Nitrite Negative (Negative) Urine Bilirubin Negative (Negative) Urine Urobilinogen 1.0 A (0.2) mg/dL Ur Leukocyte Esterase Negative (Negative) U Hyaline Cast (Auto) NONE SEEN (0-2) /LPF Urine Microscopic RBC 3-5 (0-5) /HPF Urine Microscopic WBC 3-5 (0-5) /HPF Ur Epithelial Cells Moderate A (None Seen) /HPF Urine Bacteria Few A (None Seen) /HPF Urine Culture Reflexed NO (NO) - Progress Progress: improved, pain not gone completely Counseled pt/family regarding: lab results, diagnosis, need for follow-up Medical Desision Making - Risk of complications The pt has a mod risk of morbidity or mortality based on: Need for prescription drug management - Departure Departure Disposition: Home Clinical Impression: Sigmoid diverticulitis Condition: Stable Critical Care Time: No Referrals: LANA SHARIF DO [Primary Care Provider, [facility]] - Follow up/PCP as directed Instructions: Severe Abdominal Pain, Adult (DC), Diverticulitis, Diverticulitis - Discharge instructions, Diet for inflammatory bowel disease in adults Additional Instructions: Discharge/Care Plan SONULEANDRA STERLING was seen on 03/04/25 in the Emergency Room. The patient was counseled regarding Diagnosis,Lab results, Imaging studies, need for follow up and when to return to the Emergency Room. Prescriptions given: Discharge Note I have spoken with the patient and/or caregivers. I have explained the patient's condition, diagnosis and treatment plan based on the information available to me at this time. I have answered the patient's and/or caregiver's questions and addressed any concerns. The patient and/or caregivers have as good understanding of the patient's diagnosis, condition and treatment plan as can be expected at this point. The vital signs have been stable. The patient's condition is stable and appropriate for discharge from the emergency department. The patient will pursue further outpatient evaluation with the primary care physician or other designated or consulting physician as outlined in the discharge instructions. The patient and/or caregivers are agreeable to this plan of care and follow-up instructions have been explained in detail. The patient and/or caregivers have received these instruction. The patient/and or caregivers are aware that any significant change in condition or worsening of symptoms should prompt an immediate return to this or the closest emergency department or call 911. LEANDRA ASCENCIO was seen on 03/04/25 n the Emergency Room. At that time you were treated for an emergent condition, during your visit Laboratory, Radiology and/or other procedures may have been ordered. It is very important that you follow-up with your Primary Care Physician LANA SHARIF, within the next 24-48 hours to review your Emergency Room visit and the final results of testing that was ordered. Some test results such as Urine Cultures, Blood Cultures, and other cultures if ordered will not be finalized for 24-48 hours. If you do not have a Primary Care Provider please call the medical records department at [phone] ext [phone] to obtain a copy of your results or you may sign into our patient portal to obtain these results by visiting us @ [email or web address] and completing the following steps: 1. Click on the Patient Portal link 2. Click the Patient Self Enrollment Link to complete the enrollment form and entering your 3. Once the enrollment form is completed you will receive an email with a temporary ID and password at the email address you provided. 4. Next choose a user name and password. Your user name must be at least 4 characters long and your password must be at least 4 characters long. 5. Choose a security question from the list and provide your answer to the question. If you already have signed into the Health Portal you may access your Health Care Information 01/03 by the following steps: 1. Login to our website @ [email or web address] 2. Enter your original user name and password. FAQS The [facility] Health Portal is an online tool that contains your Lab Results, Radiology Reports, Visit History, Discharge Instructions and Health Summary Lab and Radiology Results will not be available for 72 hours on the portal. The Portal is a secure site, passwords are encryted and URLs are re-written so they cannot be copied and pasted. You and authorized family members are the only ones who can access your Portal. Also there is a timeout feature that protects your information if you leave the Portal page open. If you have technical difficulty please use the Contact Us link on the page this will allow you to submit any questions you have regarding the Portal or you may contact the Medical Record Department at [phone]. Prescriptions: Metronidazole 500 mg [Flagyl 500 MG] 500 mg PO TID #21 tablet Hydrocodone/Acetaminophen [Hydrocodone-Acetamin 5-325 mg] 1 tab PO Q6HPRN PRN #15 tablet MDD 4 PRN Reason: Pain
[2025-03-04] MEDS ORDERED: MORPHINE SULFATE 4 MG INJ ONE (07:49)
[2025-03-04] MEDS ORDERED: Zofran 4 MG/2 ML VIAL ONE (07:49)
[2025-03-04] MEDS ORDERED: PROTONIX 40 MG IV IV ONE (07:49)
[2025-03-04 07:51] LABS: Hematocrit 44.7 % (34.1-44.9); Hemoglobin 15.2 g/dL (11.2-15.7); Mean Corpuscular Hemoglobin 32.1 pg (25.6-32.2); Mean Corpuscular Hgb Concent. 34.0 g/dL (32.2-35.5); Platelet Count 289 x10^3/uL (182-369); Red Blood Count 4.74 x10^6/uL (3.93-5.22); White Blood Count 14.1 x10^3/uL (3.98-10.04)
[2025-03-04] MEDS: Zofran 4 MG/2 ML VIAL IV ONE (07:51)
[2025-03-04] MEDS: MORPHINE SULFATE 4 MG INJ IV ONE (07:53)
[2025-03-04] MEDS: PROTONIX 40 MG IV IV ONE (07:53)
[2025-03-04 08:07] LABS: Calcium 9.2 mg/dL (8.4-10.2); Carbon Dioxide 19.0 mmol/L (22-30); Creatinine 1 0.87 mg/dL (0.52-1.04); EST GLOMERULAR FILTRATION RATE 80.1 ML/MIN; Glucose 146.0 mg/dL (74-106); Potassium 3.3 mmol/L (3.5-5.1); SGOT/AST 37.0 U/L (14-36); SGPT/ALT 46.0 U/L (0-35); Total Protein 7.4 g/dL (6.3-8.2)
[2025-03-04] MEDS ORDERED: FLAGYL 500 MG IVPB 500 MG/100 ML BAG IV ONE (08:20)
[2025-03-04] MEDS: FLAGYL 500 MG IVPB 500 MG/100 ML BAG IV STA (08:21)
[2025-03-04 08:31] LABS: Total Cells Counted 100
[2025-03-04 08:45] LABS: Glucose, Urine Negative (Negative); Protein,Urine Dip Negative (Negative)
[2025-03-04] MEDS ORDERED: TORAdol 30 mg Injection ONE (08:45)
[2025-03-04] MEDS: TORAdol 30 mg Injection IV ONE (08:46)
[2025-03-04] MEDS: Hydromorphone 1 mg/ml Injection IV ONE (08:55)
[2025-03-04] MEDS ORDERED: Hydromorphone 1 mg/ml Injection ONE (08:55)
[2025-03-04 09:17] VITALS: BP 137/73; PULSE 86
[2025-03-04 09:22] VITALS: O2SAT 99
== END 2025-03-04 09:49 | disposition home or self-care (01) ==
LOC: ED 07:17
DX: K57.32 Diverticulitis of large intestine without perforation or abscess without bleeding (principal); R10.32 Left lower quadrant pain; Z79.891 Long term (current) use of opiate analgesic; Z79.899 Other long term (current) drug therapy; Z72.0 Tobacco use

== ENCOUNTER 2025-03-05 15:16 | Emergency (ER) | payer OTHER ==
[2025-03-05 15:31] VITALS: TEMP 98.6
[2025-03-05 15:58] LABS: BASOPHIL % 0.2 % (0.1-1.2); Basophil (Absolute #) 0.03 x10^3/uL (0.01-0.08); Eosinophil (Absolute #) 0.03 x10^3/uL (0.04-0.36); Hematocrit 43.3 % (34.1-44.9); Hemoglobin 14.1 g/dL (11.2-15.7); IMMATURE GRAN # 0.09 x10^3u/L (0.001-0.031); IMMATURE GRAN % 0.5 % (0.001-0.429); Lymphocyte (Absolute #) 1.90 x10^3/uL (1.18-3.74); Mean Corpuscular Hemoglobin 31.5 pg (25.6-32.2); Mean Corpuscular Hgb Concent. 32.6 g/dL (32.2-35.5); Monocyte (Absolute #) 1.34 x10^3/uL (0.24-0.86); NUCLEATED RBC # 0.00 x10^3u/L (0.00-0.012); NUCLEATED RBC % 0.0 % (0.00-0.2); Platelet Count 234 x10^3/uL (182-369); Red Blood Count 4.47 x10^6/uL (3.93-5.22); White Blood Count 16.9 x10^3/uL (3.98-10.04)
[2025-03-05] MEDS ORDERED: Zofran 4 MG/2 ML VIAL ONE (15:59)
[2025-03-05] MEDS ORDERED: Hydromorphone 1 mg/ml Injection ONE (16:01)
[2025-03-05] MEDS: Zofran 4 MG/2 ML VIAL IV ONE (16:02)
[2025-03-05] MEDS: Hydromorphone 1 mg/ml Injection IV ONE (16:02)
[2025-03-05 16:16] LABS: Calcium 9.6 mg/dL (8.4-10.2); Carbon Dioxide 20.0 mmol/L (22-30); Creatinine 1 1.12 mg/dL (0.52-1.04); EST GLOMERULAR FILTRATION RATE 59.2 ML/MIN; Glucose 134.0 mg/dL (74-106); Potassium 4.0 mmol/L (3.5-5.1); SGOT/AST 34.0 U/L (14-36); SGPT/ALT 38.0 U/L (0-35); Total Protein 7.3 g/dL (6.3-8.2)
--- NOTE | 2025-03-05 17:12 | XRAY ---
Indication: Pain. History diverticulitis. Multiple contiguous assessment images obtained through the abdomen and pelvis using 80 cc Isovue 370 contrast. Comparison: October 10, 2021 Lung bases demonstrates mild dependent atelectasis. No protrude or effusion. Heart not enlarged. New small hiatal hernia. Noncontrasted stomach and bowel loops appear nonobstructed with normal appendix. There is again mild scattered diverticulosis. No diverticulitis. Again fatty liver, cholecystectomy, and 2.4 cm left adrenal adenoma. There has been interval hysterectomy. No free fluid/air. Both kidneys enhance. New 3-4 mm left UVJ calculus. Left ureter is prominent up to 1 cm along with mild hydronephrosis and mild renal edema. Also no left renal excretion on delayed imaging favoring high-grade obstruction. Remaining liver, pancreas, spleen, adrenal glands, kidneys, ureters, and bladder are unremarkable. Again mild scattered aortoiliac calcifications. No AAA or pathologic retroperitoneal lymphadenopathy. Osseous structures intact. Impression: 1. New 3-4 mm left UVJ calculus producing high-grade obstruction as detailed. 2. Again chronic findings including left adrenal adenoma, colonic diverticulosis, and arteriosclerotic disease.
--- NOTE | 2025-03-05 17:22 | ERPHSYRPT ---
- History of Present Illness Time Seen by Provider: 03/05/25 17:22 Source: patient Exam Limitations: no limitations Patient Subjective Stated Complaint: left sided abdominal and side pain for 2 days Triage Nursing Assessment: Pt brought to the ER by her niece, hypertensive, rates pain as 10/10, pulses normal, skin n/w/d, no difficulty breathing, denies chest pain, pain to the left abdominal quadrants and to the lateral side, doesn't appear to be in any distress Physician History: 54-year-old female presents to our ED as a repeat visit. Patient was in our ED yesterday. She was clinically diagnosed with diverticulitis. She was discharged home on Flagyl. Patient is here today because her pain has gotten significantly worse. Patient rates her pain 10 out of 10. Pain at the left lower quadrant of her abdomen. No trauma no fever. Symptoms are constant. Pain is moderate to severe in intensity. No specific worsening or improving factors. No associated chest pain or shortness of breath. No fever. No nausea vomiting or diaphoresis. Patient otherwise feels well. She voices no other complaints or concerns at this time. Portions of this note were created with voice recognition technology. There may be grammatical, spelling, punctuation or sound alike errors Timing/Duration: today Severity: moderate Modifying Factors: Improves With: nothing Associated Symptoms: denies symptoms Allergies/Adverse Reactions: No Known Drug Allergies Allergy (Verified 03/05/25 15:31) Home Medications: Topiramate [Topamax] 100 mg PO BID 06/02/20 [History] Albuterol Sulfate [Proair Respiclick] 2 puffs IH Q4H PRN PRN 12/18/24 [History] Alprazolam [Xanax] 0.5 tab PO TID 12/18/24 [History] Cyanocobalamin 1000 Mcg/ml [Cyanocobalamin B-12 1000 MCG/ML] 1,000 mcg IJ .MONTHLY 12/18/24 [History] Ergocalciferol (Vitamin D2) [Vitamin D2] 1 cap PO DAILY 12/18/24 [History] Fezolinetant [Veozah] 1 tab PO DAILY 12/18/24 [History] Rosuvastatin Calcium [Crestor] 5 mg PO HS 12/18/24 [History] Trazodone HCl 50 mg [Desyrel 50 mg] 1 tab PO HS 12/18/24 [History] Vitamin B Complex 1 each PO DAILY 12/18/24 [History] Hx Tetanus, Diphtheria Vaccination/Date Given: No Hx Influenza Vaccination/Date Given: Yes Hx Pneumococcal Vaccination/Date Given: No Travel Risk - International Travel Have you traveled outside of the country in past 3 weeks: No - Emerging Infectious Disease Are you exhibiting symptoms associated with any current EIDs: Yes Symptoms: Abdominal Pain, Vomitting - Review of Systems Constitutional: No Symptoms, No Fever, No Chills Eyes: No Symptoms Ears, Nose, & Throat: No Symptoms Respiratory: No Symptoms, No Cough, No Dyspnea Cardiac: No Symptoms, No Chest Pain, No Edema, No Syncope Abdominal/Gastrointestinal: No Symptoms, No Abdominal Pain, No Nausea, No Vomiting, No Diarrhea Genitourinary Symptoms: No Symptoms, No Dysuria Musculoskeletal: No Symptoms, No Back Pain, No Neck Pain Skin: No Symptoms, No Rash Neurological: No Symptoms, No Dizziness, No Focal Weakness, No Sensory Changes Psychological: No Symptoms Endocrine: No Symptoms Hematologic/Lymphatic: No Symptoms Immunological/Allergic: No Symptoms All Other Systems: Reviewed and Negative - Past Medical History Pertinent Past Medical History: Yes Neurological History: No Pertinent History ENT History: No Pertinent History Cardiac History: Deep Vein Thrombosis Respiratory History: COPD, Pneumonia, Other Endocrine Medical History: Other Musculoskeletal History: No Pertinent History GI Medical History: No Pertinent History History: No Pertinent History Psycho-Social History: Depression Female Reproductive Disorders: No Pertinent History Other Medical History: Lupus. current smoker. diverticulitus - Past Surgical History Past Surgical History: Yes (ablasion, c section, gall blad) Neuro Surgical History: No Pertinent History Cardiac: No Pertinent History Respiratory: No Pertinent History Gastrointestinal: Cholecystectomy Genitourinary: No Pertinent History Musculoskeletal: No Pertinent History, Orthopedic Surgery Female Surgical History: Other Other Surgical History: right foot surgery, ablasion, c section, cholecystectomy, - Female History Hx Now: No (tubal) - Social History Smoking Status: Current every day smoker Exposure to second hand smoke: Yes Drug Use: none - Social Determinants of Health Will the patient participate in the screening: Yes Do you worry about a steady place to live?: No Do you have any problems with any of the following?: No known problems In the past 12 months,have you had to go without utilities?: No Transportation Issues: No Has anyone in your support network made you feel unsafe?: No Have you or anyone in your house had to go w/o enough food: No - Nursing Vital Signs Nursing Vital Signs: Initial Vital Signs Temperature 98.6 F 03/05/25 15:22 Pulse Rate 84 03/05/25 15:22 Blood Pressure 150/94 03/05/25 15:22 O2 Sat by Pulse Oximetry 95 03/05/25 15:22 Pain Scale Pain Intensity 10 - Physical Exam General Appearance: no apparent distress, alert Eye Exam: PERRL/EOMI, eyes nml inspection Ears, Nose, Throat Exam: normal ENT inspection, moist mucous membranes Neck Exam: normal inspection, full range of motion Respiratory Exam: normal breath sounds, lungs clear, No respiratory distress Cardiovascular Exam: regular rate/rhythm, normal peripheral pulses Gastrointestinal/Abdomen Exam: soft, normal bowel sounds, other (Left lower quadrant tenderness to palpation), No tenderness, No mass Back Exam: normal inspection, normal range of motion, No CVA tenderness, No vertebral tenderness Extremity Exam: normal inspection Neurologic Exam: alert, oriented x 3, cooperative, normal mood/affect, sensation nml, No motor deficits Skin Exam: normal color, warm, dry, No rash Lymphatic Exam: No adenopathy SpO2 Interpretation: normal SpO2: 94 O2 Delivery: Room Air - Course Nursing assessment & vital signs reviewed: Yes - CT Exams Abdomen/Pelvis CT Interpretation: Tele-radiologist Report (Small hiatal hernia, diverticulosis, fatty liver, left 2.4 cm adrenal adenoma. 4 cm left UVJ stone) Ordered Tests: Active Orders 24 hr Category Date Time Status IV Insertion STAT Care 03/05/25 15:36 Active ABDOMEN AND PELVIS W CONTRAST [CT] Stat Exams 03/05/25 15:36 Completed CBC W DIFF Stat Lab 03/05/25 15:55 Completed CMP Stat Lab 03/05/25 15:55 Completed LIPASE Stat Lab 03/05/25 15:55 Completed TROPONIN Q4H Lab 03/05/25 15:55 Completed TROPONIN Q4H Lab 03/05/25 19:45 Ordered TROPONIN Q4H Lab 03/05/25 23:45 Ordered UA W/RFX UR CULTURE Stat Lab 03/05/25 15:36 Received Medication Summary Generic Name Dose Route Start Last Admin Trade Name Freq PRN Reason Stop Dose Admin Sodium Chloride 1,000 mls @ 100 mls/hr 03/05/25 15:45 03/05/25 16:02 Sodium Chloride 0.9% 1000 Ml IV 04/04/25 15:44 100 mls/hr .Q10H SHARMILA Administration Discontinued Medications Generic Name Dose Route Start Last Admin Trade Name Freq PRN Reason Stop Dose Admin Hydromorphone HCl 0.5 mg 03/05/25 15:36 03/05/25 16:02 Hydromorphone 1 Mg/1ml Inj IV 03/05/25 15:37 0.5 mg STAT ONE Administration Hydromorphone HCl Confirm 03/05/25 16:01 Hydromorphone 1 Mg/1ml Inj Administered 03/05/25 16:02 Dose 1 mg .ROUTE .STK-MED ONE Ketorolac Tromethamine 30 mg 03/05/25 17:20 03/05/25 17:31 Ketorolac Tromethamine 30 Mg/Ml Inj IV 03/05/25 17:21 30 mg STAT ONE Administration Ketorolac Tromethamine Confirm 03/05/25 17:31 Ketorolac Tromethamine 30 Mg/Ml Inj Administered 03/05/25 17:32 Dose 30 mg .ROUTE .STK-MED ONE Ondansetron HCl 4 mg 03/05/25 15:36 03/05/25 16:02 Ondansetron Hcl 4 Mg/2 Ml Vial IV 03/05/25 15:37 4 mg STAT ONE Administration Ondansetron HCl Confirm 03/05/25 15:59 Ondansetron Hcl 4 Mg/2 Ml Vial Administered 03/05/25 16:00 Dose 4 mg .ROUTE .STK-MED ONE Tamsulosin HCl 0.4 mg 03/05/25 17:20 03/05/25 17:32 Tamsulosin Hcl 0.4 Mg Cap PO 03/05/25 17:21 0.4 mg STAT ONE Administration Tamsulosin HCl Confirm 03/05/25 17:31 Tamsulosin Hcl 0.4 Mg Cap Administered 03/05/25 17:32 Dose 0.4 mg .ROUTE .STK-MED ONE Lab/Rad Data: Laboratory Result Diagrams 03/05/25 15:55 03/05/25 15:55 Laboratory Results 03/05/25 03/05/2525 Range/Units 15:55 15:55 15:55 WBC 16.9 H (3.98-10.04) x10^3/uL RBC 4.47 (3.93-5.22) x10^6/uL Hgb 14.1 (11.2-15.7) g/dL Hct 43.3 (34.1-44.9) % MCV 96.9 H (79.4-94.8) fL MCH 31.5 (25.6-32.2) pg MCHC 32.6 (32.2-35.5) g/dL RDW 13.7 (11.7-14.4) % Plt Count 234 (182-369) x10^3/uL MPV 9.7 (9.4-12.3) fL Gran % 80.0 H (34.0-71.1) % Immature Gran % (Auto) 0.5 H (0.001-0.429) % Nucleat RBC Rel Count 0.0 (0.00-0.2) % Eos # (Auto) 0.03 L (0.04-0.36) x10^3/uL Immature Gran # (Auto) 0.09 H (0.001-0.031) x10^3u/L Absolute Lymphs (auto) 1.90 (1.18-3.74) x10^3/uL Absolute Monos (auto) 1.34 H (0.24-0.86) x10^3/uL Absolute Nucleated RBC 0.00 (0.00-0.012) x10^3u/L Lymphocytes % 11.2 L (19.3-51.7) % Monocytes % 7.9 (4.7-12.5) % Eosinophils % 0.2 L (0.7-5.8) % Basophils % 0.2 (0.1-1.2) % Absolute Granulocytes 13.55 H (1.56-6.13) x10^3/uL Basophils # 0.03 (0.01-0.08) x10^3/uL Sodium 137 (135-145) mmol/L Potassium 4.0 D (3.5-5.1) mmol/L Chloride 108 H (98-107) mmol/L Carbon Dioxide 20 L (22-30) mmol/L Anion Gap 13.0 (5-15) MEQ/L BUN 8 (7-17) mg/dL Creatinine 1.12 H (0.52-1.04) mg/dL Estimated GFR 59.2 ML/MIN Glucose 134 H (74-106) mg/dL Calcium 9.6 (8.4-10.2) mg/dL Total Bilirubin 0.40 (0.2-1.3) mg/dL AST 34 (14-36) U/L ALT 38 H (0-35) U/L Alkaline Phosphatase 66 (38-126) U/L Troponin I < 0.012 (0.000-0.033) ng/mL Serum Total Protein 7.3 (6.3-8.2) g/dL Albumin 4.2 (3.5-5.0) g/dL Lipase 128 (23-300) U/L - Progress Progress: improved Progress Note: 54-year-old female presents to our ED for evaluation of left-sided flank pain she has had for the past several days. Patient was diagnosed with diverticulitis yesterday presented today because the pain has gotten worse. CT scan revealed a 3 to 4 mm left UVJ stone. Patient received a dose of Flomax. Patient passed the stone we recovered it and sent it to the lab. Patient is pain-free at this time. No indication for further workup. There was some slight lab abnormalities including acute renal injury and a leukocytosis. The leukocytosis is nonspecific. Patient has no signs of infection. No UTI. We will discharge patient home. Patient will follow-up with primary care doctor within 48 hours. She will need repeat labs as an outpatient to reassess the status of her kidney function and to obtain the results of the stone analysis being conducted by our lab. Patient states he is ready for discharge. She voices no other complaints or concerns at this time. 03/05/25 18:48 Portions of this note were created with voice recognition technology. There may be grammatical, spelling, punctuation or sound alike errors Complexity of problem addressed is moderate acute complicated. No critical care time. Complex of data reviewed and analyzed as moderate. Test ordered test reviewed results analyzed and correlated clinically with history and physical exam. Risk of complication and or risk of morbidity/mortality of patient management is low. Vital stable. Time spent to discharge patient approximately 15 minutes. Plan of care established for shared decision making. No social determinants of health present to impede follow-up. Portions of this note were created with voice recognition technology. There may be grammatical, spelling, punctuation or sound alike errors 03/05/25 18:50 Counseled pt/family regarding: lab results, diagnosis, need for follow-up, rad results - Departure Departure Disposition: Transfer Clinical Impression: Leukocytosis, Acute renal injury, Obstructive uropathy, Nephrolithiasis, Hydronephrosis, Adenoma of left adrenal gland, Passed kidney stone, Renal colic Condition: Stable Critical Care Time: No Referrals: LANA SHARIF, [Primary Care Provider, [facility]] - Follow up/PCP as directed Additional Instructions: Discharge/Care Plan SONULEANDRA STERLING was seen on 03/05/25 in the Emergency Room. The patient was counseled regarding Diagnosis,Lab results, Imaging studies, need for follow up and when to return to the Emergency Room. Prescriptions given: Discharge Note I have spoken with the patient and/or caregivers. I have explained the patient's condition, diagnosis and treatment plan based on the information available to me at this time. I have answered the patient's and/or caregiver's questions and addressed any concerns. The patient and/or caregivers have as good understanding of the patient's diagnosis, condition and treatment plan as can be expected at this point. The vital signs have been stable. The patient's condition is stable and appropriate for discharge from the emergency department. The patient will pursue further outpatient evaluation with the primary care physician or other designated or consulting physician as outlined in the discharge instructions. The patient and/or caregivers are agreeable to this plan of care and follow-up instructions have been explained in detail. The patient and/or caregivers have received these instruction. The patient/and or caregivers are aware that any significant change in condition or worsening of symptoms should prompt an immediate return to this or the closest emergency department or call 911.
[2025-03-05] MEDS ORDERED: TORAdol 30 mg Injection ONE (17:31)
[2025-03-05] MEDS ORDERED: Flomax 0.4 MG ONE (17:31)
[2025-03-05] MEDS: TORAdol 30 mg Injection IV ONE (17:31)
[2025-03-05] MEDS: Flomax 0.4 MG PO ONE (17:32)
[2025-03-05 18:49] LABS: Glucose, Urine Negative (Negative); Protein,Urine Dip 30 (Negative); RBC >100 /HPF (0-5)
[2025-03-05 18:53] VITALS: O2SAT 94
[2025-03-05 18:55] VITALS: BP 119/70; PULSE 74; RESP 16
== END 2025-03-05 18:56 | disposition home or self-care (01) ==
LOC: ED 15:16
DX: D72.829 Elevated white blood cell count, unspecified (principal); N17.9 Acute kidney failure, unspecified; N13.2 Hydronephrosis with renal and ureteral calculous obstruction; D35.02 Benign neoplasm of left adrenal gland; N23 Unspecified renal colic; Z79.899 Other long term (current) drug therapy; Z72.0 Tobacco use